=== PATIENT | female | born 1930 | race Caucasian/White ===

== ENCOUNTER → 2016-09-03 | Outpatient (CLI) | payer MEDICARE, OTHER ==
[~2016-09-03] MED LIST: ACHD5005 PO; ASPI-586 PO; ASPI-875 PO; CA C1TAB79 PO; CALC-656 PO; CARI350T27 PO; CEFU500T PO; CEPH500C PO; DNPZ10T PO; EXELON PATCH TD; MECL-124 PO; MEMA10TA2 PO; MULT-974 PO; OMG1KC PO; ONDN4T PO; PANT40TA2 PO; RIVA1PAT9 TD; SCOP1PAT TD; SUCR1TAB36 PO; VIT B COMPLEX PO
--- NOTE | 2016-09-03 12:55 | Diagnostic Imaging Report ---
3 views of the lumbar spine. INDICATION: Back pain. FINDINGS: There is right convexity scoliosis of the lumbar spine. There is a compression deformity involving T12 vertebral body with approximately 20% vertebral body height loss. There is disc height loss of moderate degree at L4/5 level. Multilevel anterior osteophytes noted. No significant posterior osteophytes. There is sclerotic changes in the facet joints particularly on the left side compatible with degenerative changes. Calcifications in the pelvis are likely vascular. Soft tissues also demonstrate aortic calcifications and cardiomegaly. IMPRESSION: 1. Mild right convexity scoliosis and degenerative changes. 2. A 20% compression fracture of indeterminate age at T12 level. If the patient has recent injury or has a matching pain level, then further evaluation with MRI would be helpful. Report was faxed to office of Dr. Pool by john at 12:59 p.m. Dictated by: Dictated on workstation # [id number]
[2016-09-04 11:37] LABS: TULAREMIA ANTIBODY <1:20
[2016-09-04 16:12] LABS: IGG ROCKY MOUNTAIN SPOTTED FEV <1:16 (<1:16); IGM ROCKY MOUNTAIN SPOTTED FEV <1:10 (<1:10)
[2016-09-04 21:05] LABS: LYME AB G M 0.04 Index (0.00-0.89)
[2016-09-05 07:17] LABS: LYME AB INTERP Negative (Negative)
[2016-09-05 14:05] LABS: EHRLICHIA CHAFFEENSIS G ABY 1:32 (<1:16)
== END ==
LOC: RAD 11:55
PROVIDERS: ATTEND Family Medicine
DX: M41.9 Scoliosis, unspecified (principal); M47.816 Spondylosis without myelopathy or radiculopathy, lumbar region; M48.54XA Collapsed vertebra, not elsewhere classified, thoracic region, initial encounter for fracture
CPT/HCPCS: 36415; 72100; 86618; 86666; 86668; 86757

== ENCOUNTER → 2018-01-07 | Outpatient (CLI) | payer OTHER, MEDICARE ==
--- NOTE | 2018-01-07 13:11 | Diagnostic Imaging Report ---
INDICATION: Left wrist pain and swelling. AP, oblique, and lateral views of left wrist are obtained. There is no fracture or acute bony abnormality. There is degenerative change of the radiocarpal joint and first carpal metacarpal joint. There is chondrocalcinosis. IMPRESSION: Chronic findings as described above with no acute appearing abnormality. Dictated by: Dictated on workstation # [id number]
== END ==
LOC: RAD 11:49
PROVIDERS: ATTEND Family Medicine
DX: M19.032 Primary osteoarthritis, left wrist (principal); M11.232 Other chondrocalcinosis, left wrist; W10.2XXS Fall (on)(from) incline, sequela
CPT/HCPCS: 73110

== ENCOUNTER 2018-02-16 16:20 | Emergency (ER) | payer MEDICARE, OTHER ==
[~2018-02-16] VITALS: Ht 162.6 cm; Wt 59.0 kg
--- OUTSIDE RECORDS SUMMARY | 2018-02-16 16:25 | XMS REPORT | Continuity of Care Document ---
Author Author [facility] Organization [facility] Address Unknown Phone Unavailable Allergies Active Description Code Type Severity Reaction Onset Reported/Identified Relationship to Patient Clinical Status Yes CODEINE SULFATE UNKNOWN OTHER Yes belladonna alkaloids [id number] Drug Allergy Mild NAUSEA 02/09/2013 Yes codeine [id number] Drug Allergy Unknown N/A 01/25/2015 Medications Medication Packaging Start Date Stop Date Route Dosage Sig Memantine oral tablet 5mg (NAMENDA) MG 12/24/2017 12/24/2017 ONCE&0800,2000 Rivastigmine TD Patch 24 hour 13.3mg (EXELON) MG 12/24/2017 12/24/2017 ONCE&0900 LORAZEPAM TAB 0.5 MG (ATIVAN) MG 12/31/2017 PRN Q6H ACETAMINOPHEN ORAL TABLET 325mg(Tylenol) MG 12/25/2017 01/24/2018 PRN Q6H POLYETHYLENE GLYCOL POWDER UD PWD (MIRALAX 17GM UNIT DOSE PAKS) gm 12/25/2017 01/24/2018 PRN Q3H ALUM/MAG/SIMETH 30CC LIQ (MYLANTA PLUS) cc 12/25/2017 01/24/2018 PRN Q4H LACTULOSE SYRUP LIQ 20 GM/30CC (CHRONULAC SYRUP) GM 12/25/2017 01/24/2018 PRN BID MILK OF MAGNESIA LIQ ml 12/25/2017 01/24/2018 PRN BID MELATONIN TAB 3 MG (MELATONIN) MG 12/25/2017 01/24/2018 PRN QHS BISACODYL SUPPOS 10 MG (DULCOLAX SUPPOS) MG 12/26/2017 01/25/2018 PRN Daily LORAZEPAM TAB 0.5 MG (ATIVAN) MG 01/24/2018 Daily&1400 HALOPERIDOL TAB 1 MG (HALDOL) MG 01/25/2018 PRN Q6H HALOPERIDOL TAB 1 MG (HALDOL) MG 01/26/2018 PRN Q6H IPRATROPIUM/ALBUTEROL INH SOLN (DUO-NEB INH SOLN) MLS 12/28/2017 12/28/2017 ONCE&0825 LORAZEPAM TAB 1 MG (ATIVAN) MG 05/201701/26/2018 Daily&1400 IPRATROPIUM/ALBUTEROL INH SOLN (DUO-NEB INH SOLN) MLS 12/28/2017 01/27/2018 TID&0600,1400,2200 AMLODIPINE TAB 5 MG (NORVASC) MG 01/27/2018 QAM&0900 HALOPERIDOL TAB 1 MG (HALDOL) MG 01/28/2018 BID&0800,2000 AMLODIPINE TAB 5 MG (NORVASC) MG 01/28/2018 QAM&0900 LORAZEPAM TAB 1 MG (ATIVAN) MG 07/201701/28/2018 Q24H&1200 LORAZEPAM TAB 1 MG (ATIVAN) MG 07/201701/28/2018 QHS&2100 SERTRALINE TAB 25 MG (ZOLOFT) MG 01/29/2018 Daily&0900 Clonazepam Oral Dissolve Tab 0.25mg (Klonopin) MG 12/31/2017 12/31/2017 ONCE&1017 Clonazepam Oral Dissolve Tab 0.25mg (Klonopin) MG 12/31/2017 01/30/2018 BID&0800,2000 CLONAZEPAM TAB 0.5 MG (KLONOPIN) MG 01/01/2018 01/01/2018 ONCE&1600 LORAZEPAM TAB 0.5 MG (ATIVAN) MG 01/31/2018 PRN Q6H CLONAZEPAM TAB 0.5 MG (KLONOPIN) MG 01/01/2018 01/31/2018 TID&0600,1400,2200 HALOPERIDOL TAB 1 MG (HALDOL) MG 02/01/2018 TID&0800,1400,2000 SERTRALINE TAB 50 MG (ZOLOFT) MG 02/01/2018 Daily&0900 Problems Date Dx Coded Attending Type Code Diagnosis Diagnosed By 11/08/2010 Ot 780.4 DIZZINESS AND GIDDINESS 11/08/2010 Ot V58.69 OTH MED,LT, CURRENT USE 12/12/2010 Ot 401.9 HYPERTENSION NOS 12/12/2010 Ot 723.1 CERVICALGIA 01/26/2012 Ot 916.0 ABRASION HIP LEG 01/26/2012 Ot E000.8 OTHER EXTERNAL CAUSE STATUS 01/26/2012 Ot E849.0 ACCIDENT IN HOME 01/26/2012 Ot E917.4 STAT OB W/O SUB FALL NEC 01/26/2012 Ot V06.1 DIPHTHERIA- TETANUS-PERTUSSIS, COMBINED [ 04/21/2012 Ot 786.52 PAINFUL RESPIRATION 04/21/2012 Ot 922.2 CONTUSION ABDOMINAL WALL 04/21/2012 Ot E000.8 OTHER EXTERNAL CAUSE STATUS 04/21/2012 Ot E849.0 ACCIDENT IN HOME 04/21/2012 Ot E888.1 FALL STRIKING OBJECT NEC 02/08/2013 DARRELL BURGESS, MELISSA R Ot 787.01 NAUSEA WITH VOMITING 02/09/2013 MARY NAZARIO DO Ot 787.99 OTHER GI SYSTEM SYMPTOMS 05/23/2014 RACQUEL BURGESS, JAMES Lee Ot 599.0 URIN TRACT INFECTION NOS 05/23/2014 RACQUEL BURGESS, JAMES Lee Ot 787.01 NAUSEA WITH VOMITING 08/17/2014 DARRELL BURGESS, MELISSA R Ot 618.1 08/17/2014 MARY NAZARIO DO Ot V72.84 08/17/2014 Ot 787.01 08/17/2014 DARRELL BURGESS, MELISSA R Ot 496 08/17/2014 DARRELL BURGESS, MELISSA R Ot 737.30 08/17/2014 DARRELL BURGESS, MELISSA R Ot 294.20 08/18/2014 DARRELL BURGESS, MELISSA R Ot 414.01 08/18/2014 DARRELL BURGESS, MELISSA R Ot 492.8 08/18/2014 DARRELL BURGESS, MELISSA R Ot 783.21 08/18/2014 DARRELL BURGESS, MELISSA R Ot 787.01 08/18/2014 DARRELL BURGESS, MELISSA R Ot 414.01 08/18/2014 DARRELL BURGESS, MELISSA R Ot 492.8 08/18/2014 DARRELL BURGESS, MELISSA R Ot 783.21 08/18/2014 DARRELL BURGESS, MELISSA R Ot 787.01 09/24/2014 DARRELL BURGESS, MELISSA R Ot 414.01 09/24/2014 DARRELL BURGESS, MELISSA R Ot 492.8 09/24/2014 DARRELL BURGESS, MELISSA R Ot 783.21 09/24/2014 DARRELL BURGESS, MELISSA R Ot 787.01 10/10/2014 DARRELL BURGESS, MELISSA R Ot 414.01 10/10/2014 DARRELL BURGESS, MELISSA R Ot 492.8 10/10/2014 DARRELL BURGESS, MELISSA R Ot 783.21 10/10/2014 DARRELL BURGESS, MELISSA R Ot 787.01 01/25/2015 Ot 787.01 01/25/2015 KENNETH BURGESS, ISAIAH Ot 331.0 ALZHEIMER'S DISEASE 01/25/2015 KENNETH BURGESS, ISAIAH Ot 530.11 REFLUX ESOPHAGITIS 01/25/2015 KENNETH BURGESS, ISAIAH Ot 531.90 STOMACH ULCER NOS 01/25/2015 KENNETH BURGESS, ISAIAH Ot 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/O ME 01/25/2015 KENNETH BURGESS, ISAIAH Ot 553.3 DIAPHRAGMATIC HERNIA 01/25/2015 KENNETH BURGESS, ISAIAH Ot V58.69 OTH MED,LT,CURRENT USE 02/06/2016 Ot 816.01 FX MID/PRX PHAL, HAND-CL 02/06/2016 Ot E000.8 OTHER EXTERNAL CAUSE STATUS 02/06/2016 Ot E888.9 FALL NOS 02/06/2016 Ot 433.10 CAROTID ARTERY OCCLUSION W O CEREBRAL IN 02/06/2016 DARRELL BURGESS, MELISSA R Ot 787.01 NAUSEA WITH VOMITING 02/06/2016 DARRELL BURGESS, MELISSA R Ot 618.1 UTERINE PROLAPSE 02/06/2016 MARY NAZARIO DO Ot V72.84 EXAM PRE-OPERATIVE NOS 02/06/2016 Ot 787.01 NAUSEA WITH VOMITING 02/06/2016 DARRELL BURGESS, MELISSA R Ot 496 CHR AIRWAY OBSTRUCT NEC 02/06/2016 DARRELL BURGESS, MELISSA R Ot 737.30 IDIOPATHIC SCOLIOSIS 02/06/2016 DARRELL BURGESS, MELISSA R Ot 294.20 DEMENTIA, UNSPECIFIED, WITHOUT BEHAVIORA 02/06/2016 MELISSA RAMÍREZ MD Ot 414.01 CORONARY ATHEROSCLEROSIS OF [place] CORON 02/06/2016 MELISSA RAMÍREZ MD Ot 492.8 EMPHYSEMA NEC 02/06/2016 MELISSA RAMÍREZ MD Ot 783.21 LOSS OF WEIGHT 02/06/2016 MELISSA RAMÍREZ MD Ot 787.01 NAUSEA WITH VOMITING 02/06/2016 XI NORIEGA APRN Ot N39.0 URINARY TRACT INFECTION, SITE NOT SPECIF 02/06/2016 XI NORIEGA STEWARD/STEWARDESS TOURIST CLASS Ot R11.0 NAUSEA 02/06/2016 XI NORIEGA STEWARD/STEWARDESS TOURIST CLASS Ot R50.9 FEVER, UNSPECIFIED 02/06/2016 XI NORIEGA STEWARD/STEWARDESS TOURIST CLASS Ot Z79.82 ASSISTED (CURRENT) USE OF ASPIRIN 02/06/2016 XI NORIEGA STEWARD/STEWARDESS TOURIST CLASS Ot Z79.899 OTHER TELEGRAPH AND TELETYPE OPERATOR (CURRENT) DRUG THERAPY 02/07/2016 XI NORIEGA STEWARD/STEWARDESS TOURIST CLASS Ot N39.0 URINARY TRACT INFECTION, SITE NOT SPECIF 02/07/2016 XI NORIEGA STEWARD/STEWARDESS TOURIST CLASS Ot R11.0 NAUSEA 02/07/2016 XI NORIEGA APRN Ot R50.9 FEVER, UNSPECIFIED 02/07/2016 XI NORIEGA STEWARD/STEWARDESS TOURIST CLASS Ot Z79.82 TELEGRAPH AND TELETYPE OPERATOR (CURRENT) USE OF ASPIRIN 02/07/2016 XI NORIEGA STEWARD/STEWARDESS TOURIST CLASS Ot Z79.899 OTHER TELEGRAPH AND TELETYPE OPERATOR (CURRENT) DRUG THERAPY 02/13/2016 Ot 816.01 FX MID/PRX PHAL, HAND-CL 02/13/2016 Ot E000.8 OTHER EXTERNAL CAUSE STATUS 02/13/2016 Ot E888.9 FALL NOS 02/13/2016 Ot 433.10 CAROTID ARTERY OCCLUSION W O CEREBRAL IN 02/13/2016 MELISSA RAMÍREZ MD R Ot 787.01 NAUSEA WITH VOMITING 02/13/2016 MELISSA RAMÍREZ MD Ot 618.1 UTERINE PROLAPSE 02/13/2016 MARY NAZARIO DO Ot V72.84 EXAM PRE-OPERATIVE NOS 02/13/2016 Ot 787.01 NAUSEA WITH VOMITING 02/13/2016 MELISSA RAMÍREZ MD Ot 496 CHR AIRWAY OBSTRUCT NEC 02/13/2016 MELISSA RAMÍREZ MD R Ot 737.30 IDIOPATHIC SCOLIOSIS 02/13/2016 SEGLIE MD, MELISSA R Ot 294.20 DEMENTIA, UNSPECIFIED, WITHOUT BEHAVIORA 02/13/2016 MELISSA RAMÍREZ MD R Ot 414.01 CORONARY ATHEROSCLEROSIS OF [place] CORON 02/13/2016 KANE RAMÍREZ MDYD R Ot 492.8 EMPHYSEMA NEC 02/13/2016 MELISSA RAMÍREZ MD R Ot 783.21 LOSS OF WEIGHT 02/13/2016 MELISSA RAMÍREZ MD R Ot 787.01 NAUSEA WITH VOMITING 09/04/2016 DARRELL BURGESS MELISSA R Ot M41.9 SCOLIOSIS, UNSPECIFIED 09/04/2016 KANE RAMÍREZ MDYD R Ot M47.816 SPONDYLOSIS W/O MYELOPATHY OR RADICULOPA 09/04/2016 KANE RAMÍREZ MDYD R Ot M48.54XA COLLAPSED VERTEBRA, NEC, THORACIC REGION 09/26/2016 KANE RAMÍREZ MDYD R Ot M41.9 SCOLIOSIS, UNSPECIFIED 09/26/2016 DARRELL BURGESS MELISSA R Ot M47.816 SPONDYLOSIS W/O MYELOPATHY OR RADICULOPA 09/26/2016 DARRELL BURGESS MELISSA R Ot M48.54XA COLLAPSED VER[place]BRA, NEC, THORACIC REGION 10/01/2016 MELISSA RAMÍREZ MD R Ot M41.9 SCOLIOSIS, UNSPECIFIED 10/01/2016 DARRELL BURGESS MELISSA R Ot M47.816 SPONDYLOSIS W/O MYELOPATHY OR RADICULOPA 10/01/2016 KANE RAMÍREZ MDYD R Ot M48.54XA COLLAPSED VERTEBRA, NEC, THORACIC REGION 01/07/2018 MELISSA RAMÍREZ MD R Ot 787.01 NAUSEA WITH VOMITING 01/07/2018 DARRELL BURGESS MELISSA R Ot 618.1 UTERINE PROLAPSE 01/07/2018 MARY NAZARIO DO Ot V72.84 EXAM PRE-OPERATIVE NOS 01/07/2018 Ot 787.01 NAUSEA WITH VOMITING 01/07/2018 MELISSA RAMÍREZ MD R Ot 496 CHR AIRWAY OBSTRUCT NEC 01/07/2018 DRARELL BURGESS MELISSA R Ot 737.30 IDIOPATHIC SCOLIOSIS 01/07/2018 DARRELL BURGESS MELISSA R Ot 294.20 DEMENTIA, UNSPECIFIED, WITHOUT BEHAVIORA 01/07/2018 DARRELL BURGESS MELISSA R Ot 414.01 CORONARY ATHEROSCLEROSIS OF [place] CORON 01/07/2018 MELISSA RAMÍREZ MD R Ot 492.8 EMPHYSEMA NEC 01/07/2018 MELISSA RAMÍREZ MD R Ot 783.21 LOSS OF WEIGHT 01/07/2018 MELISSA RAMÍREZ MD R Ot 787.01 NAUSEA WITH VOMITING 01/07/2018 MELISSA RAMÍREZ MD R Ot M41.9 SCOLIOSIS, UNSPECIFIED 01/07/2018 MELISSA RAMÍREZ MD Ot M47.816 SPONDYLOSIS W/O MYELOPATHY OR RADICULOPA 01/07/2018 MELISSA RAMÍREZ MD R Ot M48.54XA COLLAPSED [place]BRA, NEC, THORACIC REGION 01/07/2018 MELISSA RAMÍREZ MD R Ot 618.1 UTERINE PROLAPSE 01/07/2018 MARY NAZARIO DO Ot V72.84 EXAM PRE-OPERATIVE NOS 01/07/2018 Ot 787.01 NAUSEA WITH VOMITING 01/07/2018 MELISSA RAMÍREZ MD Ot 496 CHR AIRWAY OBSTRUCT NEC 01/07/2018 MELISSA RAMÍREZ MD R Ot 737.30 IDIOPATHIC SCOLIOSIS 01/07/2018 MELISSA RAMÍREZ MD R Ot 294.20 DEMENTIA, UNSPECIFIED, WITHOUT BEHAVIORA 01/08/2018 MELISSA RAMÍREZ MD R Ot 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 Results Test Result Range Complete blood count (CBC) with automated white blood cell (WBC) differential - 02/06/16 15:06 Blood leukocytes automated count (number/volume) 7.1 10*3/uL 4.3-11.0 Blood erythrocytes automated count (number/volume) 4.39 10*6/uL 4.35-5.85 Venous blood hemoglobin measurement (mass/volume) 13.6 g/dL 11.5-16.0 Blood hematocrit (volume fraction) 41 % 35-52 Automated erythrocyte mean corpuscular volume 93 [foz_us] 80-99 Automated erythrocyte mean corpuscular hemoglobin (mass per erythrocyte) 31 pg 25-34 Automated erythrocyte mean corpuscular hemoglobin concentration measurement ( mass/volume) 33 g/dL 32-36 Automated erythrocyte distribution width ratio 13.5 % 10.0-14.5 Automated blood platelet count (count/volume) 259 10*3/uL 130-400 Automated blood platelet mean volume measurement 9.8 [foz_us] 7.4-10.4 Automated blood neutrophils/100 leukocytes 71 % 42-75 Automated blood lymphocytes/100 leukocytes 18 % 12-44 Blood monocytes/100 leukocytes 10 % 0-12 Automated blood eosinophils/100 leukocytes 1 % 0-10 Automated blood basophils/100 leukocytes 1 % 0-10 Blood neutrophils automated count (number/volume) 5.0 10*3 1.8-7.8 Blood lymphocytes automated count (number/volume) 1.3 10*3 1.0-4.0 Blood monocytes automated count (number/volume) 0.7 10*3 0.0-1.0 Automated eosinophil count 0.1 10*3/uL 0.0-0.3 Automated blood basophil count (count/volume) 0.1 10*3/uL 0.0-0.1 Comprehensive metabolic panel - 02/06/16 15:06 Serum or plasma sodium measurement (moles/volume) 141 mmol/L 135-145 Serum or plasma potassium measurement (moles/volume) 3.9 mmol/L 3.6-5.0 Serum or plasma chloride measurement (moles/volume) 107 mmol/L 98-107 Carbon dioxide 20 mmol/L 21-32 Serum or plasma anion gap determination (moles/volume) 14 mmol/L 5-14 Serum or plasma urea nitrogen measurement (mass/volume) 10 mg/dL 7-18 Serum or plasma creatinine measurement (mass/volume) 0.81 mg/dL 0.60-1.30 Serum or plasma urea nitrogen/creatinine mass ratio 12 NRG Serum or plasma creatinine measurement with calculation of estimated glomerular filtration rate > NRG Serum or plasma glucose measurement (mass/volume) 99 mg/dL 70-105 Serum or plasma calcium measurement (mass/volume) 9.4 mg/dL 8.5-10.1 Serum or plasma total bilirubin measurement (mass/volume) 0.6 mg/dL 0.1-1.0 Serum or plasma alkaline phosphatase measurement (enzymatic activity/volume) 71 U/L 40-136 Serum or plasma aspartate aminotransferase measurement (enzymatic activity/ volume) 20 U/L 5-34 Serum or plasma alanine aminotransferase measurement (enzymatic activity/volume ) 12 U/L 0-55 Serum or plasma protein measurement (mass/volume) 6.8 g/dL 6.4-8.2 Serum or plasma albumin measurement (mass/volume) 4.0 g/dL 3.2-4.5 Lipase - 02/06/16 15:06 Lipase 63 U/L 8-78 Tick identification panel - 02/06/16 15:06 Serum Ehrlichia chaffeensis IgG antibody detection <1:16 <1:16 Serum Ehrlichia chaffeensis IgM antibody detection <1:10 <1:10 Serum Rickettsia rickettsii IgG antibody assay (units/volume) <1:16 <1:16 [place] spotted fever panel <1:10 <1:10 Francisella tularensis antibody assay <1:20 NRG Borrelia burgdorferi (Lyme disease) antibody 0.11 0.00- 0.90 Complete urinalysis with reflex to culture - 02/06/16 15:50 Urine color determination YELLOW NRG Urine clarity determination CLEAR NRG Urine pH measurement by test strip 7 5-9 Specific gravity of urine by test strip 1.015 1.016- 1.022 Urine protein assay by test strip, semi-quantitative 1+ NEGATIVE Urine glucose detection by automated test strip NEGATIVE NEGATIVE Erythrocytes detection in urine sediment by light microscopy 2+ NEGATIVE Urine ketones detection by automated test strip 4+ NEGATIVE Urine nitrite detection by test strip NEGATIVE NEGATIVE Urine total bilirubin detection by test strip NEGATIVE NEGATIVE Urine urobilinogen measurement by automated test strip (mass/volume) NORMAL NORMAL Urine leukocyte esterase detection by dipstick 2+ NEGATIVE Automated urine sediment erythrocyte count by microscopy (number/high power field) [HPF] NRG Automated urine sediment leukocyte count by microscopy (number/high power field ) [HPF] NRG Bacteria detection in urine sediment by light microscopy FEW NRG Squamous epithelial cells detection in urine sediment by light microscopy 5-10 NRG Crystals detection in urine sediment by light microscopy NONE NRG Casts detection in urine sediment by light microscopy NONE NRG Mucus detection in urine sediment by light microscopy MODERATE NRG Complete urinalysis with reflex to culture YES NRG Bacterial urine culture - 02/06/16 15:50 URINE CULTURE RESULTS <10,000/ML NRG Tick identification panel - 09/03/16 12:32 Serum Ehrlichia chaffeensis IgG antibody detection 1:32 <1:16 Serum Ehrlichia chaffeensis IgM antibody detection 1:10 <1:10 Serum Rickettsia rickettsii IgG antibody assay (units/volume) < <1:16 [place] spotted fever panel < <1:10 Francisella tularensis antibody assay <1:20 NRG LYME AB G M 0.04 % 0.00-0.89 Interpretation of Lyme disease antibody assay Negative Negative Rapid Drug Screen + ETOH,Medical - 12/24/17 13:18 Amphetamine NEGATIVE NEGATIVE Barbiturates NEGATIVE NEGATIVE Benzodiazepines POSITIVE NEGATIVE Cocaine NEGATIVE NEGATIVE Ethanol, Urine <10.00 mg/dL 20.00-80.00 Marijuana NEGATIVE NEGATIVE Methylenedioxymethamphetamine NEGATIVE NEGATIVE Opiates NEGATIVE NEGATIVE Oxycodone NEGATIVE NEGATIVE Phencyclidine NEGATIVE NEGATIVE Propoxyphene NEGATIVE NEGATIVE Tricyclic Antidepressant NEGATIVE NEGATIVE Encounters ACCT No. Visit Date/Time Discharge Status Pt. Type Provider Facility Loc./Unit Complaint [id number] 01/07/2018 11:49:00 01/07/2018 23:59:59 CLS Outpatient MELISSA RAMÍREZ MD [facility] RAD W10.2XXS [id number] 09/03/2016 11:55:00 09/03/2016 23:59:59 CLS Outpatient MELISSA RAMÍREZ MD [facility] RAD M54.40 [id number] 02/06/2016 14:26:00 02/06/2016 16:37:00 DIS Emergency XI NORIEGA APRN [facility] ER FEVER NAUSEA [id number] 01/25/2015 09:40:00 01/25/2015 11:35:00 DIS Outpatient ISAIAH COOPER MD [facility] SDC ABDOMINAL PAIN/NV [id number] 08/16/2014 13:09:00 08/16/2014 23:59:59 CLS Outpatient MELISSA RAMÍREZ MD [facility] RAD WT LOSS,VOMITTING,NAUSEA [id number] 08/15/2014 17:08:00 08/15/2014 17:08:00 CAN Preadmit MELISSA RAMÍREZ MD [facility] LAB WT LOSS, N/V/D [id number] 05/23/2014 13:59:00 05/23/2014 17:40:00 DIS Emergency RACQUEL BURGESS, JAMES Lee [facility] ER NAUSEATED/VOMITING [id number] 01/28/2014 15:20:00 01/28/2014 23:59:59 CLS Outpatient [id number] 12/30/2013 14:51:00 12/30/2013 23:59:59 CLS Outpatient MELISSA RAMÍREZ MD [facility] RAD MEMORY LOSS [id number] 08/16/2013 15:05:00 08/16/2013 23:59:59 CLS Outpatient MELISSA RAMÍREZ MD [facility] RAD COUGH, [id number] 02/09/2013 10:03:00 02/09/2013 16:00:00 DIS Outpatient MARY NAZARIO DO [facility] SDC IRREGULAR BOWEL MOVEMENTS [id number] 11/12/2012 10:53:00 02/08/2013 00:01:00 DIS Outpatient MELISSA RAMÍREZ MD [facility] LAB NAUSEA,VOMITING [id number] 02/04/2013 07:14:00 02/04/2013 23:59:59 CLS Outpatient MARY NAZARIO DO [facility] PREOP IRREGULAR BOWEL MOVEMENTS [id number] 12/30/2012 16:00:00 12/30/2012 23:59:59 CLS Outpatient MELISSA RAMÍREZ MD [facility] RAD FEELING OF DROPPING [id number] 11/10/2012 11:53:00 11/10/2012 23:59:59 CLS Outpatient MELISSA RAMÍREZ MD [facility] RAD VOMITING,NAUSEA [id number] 02/09/2013 00:00:00 Document Registration [id number] 04/21/2012 02:15:00 Document Registration [id number] 01/26/2012 18:40:00 Document Registration [id number] 12/31/2011 13:17:00 Document Registration [id number] 12/12/2010 18:28:00 Document Registration [id number] 11/08/2010 14:44:00 Document Registration [id number] 11/08/2010 09:46:00 Document Registration [id number] 12/24/2017 13:17:00 01/05/2018 13:24:00 DIS Inpatient JOHN FRAIRE [facility] [id number] 12/24/2017 15:28:14 Document Registration
[2018-02-16] MEDS ORDERED: NS IV 500 ML 500 ML IV ONE ×2 (16:37→17:44)
--- NOTE | 2018-02-16 16:46 | ED General ---
General Stated Complaint: POSS DEHYDRATED/WEAKNESS Source of Information: Patient Exam Limitations: No Limitations (NASEEM KYLE MD) History of Present Illness Date Seen by Provider: Feb 16, 2018 Time Seen by Provider: 16:27 Initial Comments Here with report of increasing confusion since this morning. Not eating or drinking well today. Having some difficulty with swallowing. Does have advanced dementia. No recent trauma. Does have a strong odor of urine and family reports that she has had urinary tract infections in the past causing similar problems. They're concerned about dehydration because she is not eating or drinking well today. No reported diarrhea or other problems. Patient denies complaint but did tell family that her ears were ringing. Timing/Duration: 1-2 Days Severity: Moderate Associated Systoms: No Fever/Chills, No Nausea/Vomiting, No Shortness of Air ( NASEEM KYLE MD) Allergies and Home Medications Allergies Coded Allergies: codeine (Unverified Allergy, Unknown, 01/25/15) belladonna alkaloids (Unverified Adverse Reaction, Mild, NAUSEA, 02/09/13) Home Medications Aspirin 81 Mg Tablet.dr, 81 MG PO DAILY, (Reported) Ca Carbonate/Vitamin D3/Vit K 1 Each Tab.chew, 1 EACH PO DAILY, (Reported) Cefuroxime Axetil 500 Mg Tablet, 500 MG PO BID Prescribed by: XI NORIEGA on 02/06/16 1617 Donepezil Hcl 10 Mg Tablet, 10 MG PO DAILY, (Reported) Ondansetron HCl 4 Mg Tab, 4 MG PO Q4H Prescribed by: ISAIAH COOPER on 01/25/15 1101 Pantoprazole Sodium 40 Mg Tablet.dr, 40 MG PO DAILY Prescribed by: ISAIAH COOPER on 01/25/15 1101 Sucralfate 1 Gm Tablet, 1 GM PO QID Prescribed by: ISAIAH COOPER on 01/25/15 1101 [Exelon Patch] , TD DAILY Prescribed by: ROQUE OHARA on 01/25/15 1036 Patient Home Medication List Home Medication List Reviewed: Yes (NASEEM KYLE MD) Review of Systems Review of Systems Constitutional: see HPI; No chills, No fever EENTM: see HPI, mouth pain (sores from dentures) Respiratory: No cough; short of breath Cardiovascular: No chest pain, No edema Gastrointestinal: No abdominal pain, No nausea, No vomiting Genitourinary: decreased output; No dysuria Musculoskeletal: No muscle pain; muscle weakness Skin: no symptoms reported (NASEEM KYLE MD) All Other Systems Reviewed Negative Unless Noted: Yes (NASEEM KYLE MD) Past Diitjqv-Ejgmup-Ksxxuf Hx Past Med/Social Hx: Reviewed Nursing Past Med/Soc Hx (NASEEM KYLE MD) Patient Social History Alcohol Use: Denies Use Recreational Drug Use: No Smoking Status: Former Smoker Former Smoker, Quit: Feb 05, 2000 Recent Foreign Travel: No Contact w/Someone Who Travel: No Recent Hopitalizations: No (NASEEM KYLE MD) Immunizations Up To Date Date of Influenza Vaccine: Jan 26, 2014 (NASEEM KYLE MD) Past Medical History Surgeries: Yes Abdominal, Orthopedic Respiratory: No Cardiac: Yes Hypertension Neurological: Yes Dementia Genitourinary: Yes Bladder Infection Gastrointestinal: No Musculoskeletal: Yes Fractures Endocrine: No HEENT: No Cancer: No (NASEEM KYLE MD) Family Medical History Reviewed Nursing Family Hx (NASEEM KYLE MD) Physical Exam Vital Signs Vital Signs - First Documented 02/16/18 16:24 Temp 100.4 Pulse 81 Resp 18 B/P (MAP) 182/92 (122) Pulse Ox 94 O2 Delivery Room Air (JAMES CLEMENT MD) Vital Signs Capillary Refill : (NASEEM KYLE MD) Height, Weight, BMI Height: 5'1.00" Weight: 110lbs. oz. 49.464207sa; BMI Method:Stated General Appearance: No Apparent Distress, Thin HEENT: PERRL/EOMI, Pharynx Normal Neck: Non Tender, Supple Respiratory: Lungs Clear, Normal Breath Sounds Cardiovascular: Regular Rate, Rhythm, No Murmur Gastrointestinal: Non Tender, Soft Back: Normal Inspection, No CVA Tenderness, No Vertebral Tenderness Extremity: Normal Inspection, Normal Range of Motion Neurologic/Psychiatric: Alert, Motor Weakness (globally), Other (underlying dementia) Skin: Normal Color, Warm/Dry (NASEEM KYLE MD) Focused Exam Lactate Level 02/16/18 16:40: Lactic Acid Level 1.10 (JAMES CLEMENT MD) Lactic Acid Level (JAMES CLEMENT MD) Progress/Results/Core Measures Suspected Sepsis SIRS Temperature: Pulse: Respiratory Rate: Laboratory Tests 02/16/18 16:40: White Blood Count 10.7 Blood Pressure / Mean: 02/16/18 16:40: Lactic Acid Level 1.10 Laboratory Tests 02/16/18 16:40: Creatinine 0.79, INR Comment 1.0, Platelet Count 264, Total Bilirubin 0.5 (NASEEM KYLE MD) Results/Orders Lab Results Laboratory Tests Test 02/16/18 16:40 02/16/18 17:41 Range/Units White Blood Count 10.7 4.3-11.0 10^3/uL Red Blood Count 4.40 4.35-5.85 10^6/uL Hemoglobin 13.4 11.5-16.0 G/DL Hematocrit 41 35-52 % Mean Corpuscular Volume 93 80-99 FL Mean Corpuscular Hemoglobin 31 25-34 PG Mean Corpuscular Hemoglobin Concent 33 32-36 G/DL Red Cell Distribution Width 13.2 10.0-14.5 % Platelet Count 264 130-400 10^3/uL Mean Platelet Volume 10.4 7.4-10.4 FL Neutrophils (%) (Auto) 62 42-75 % Lymphocytes (%) (Auto) 22 12-44 % Monocytes (%) (Auto) 14 H 0-12 % Eosinophils (%) (Auto) 2 0-10 % Basophils (%) (Auto) 0 0-10 % Neutrophils # (Auto) 6.6 1.8-7.8 X 10^3 Lymphocytes # (Auto) 2.4 1.0-4.0 X 10^3 Monocytes # (Auto) 1.5 H 0.0-1.0 X 10^3 Eosinophils # (Auto) 0.2 0.0-0.3 10^3/uL Basophils # (Auto) 0.0 0.0-0.1 10^3/uL Prothrombin Time 13.3 12.2-14.7 SEC INR Comment 1.0 0.8-1.4 Activated Partial Thromboplast Time 29 24-35 SEC Sodium Level 138 135-145 MMOL/L Potassium Level 3.6 3.6-5.0 MMOL/L Chloride Level 103 98-107 MMOL/L Carbon Dioxide Level 21 21-32 MMOL/L Anion Gap 14 5-14 MMOL/L Blood Urea Nitrogen 10 7-18 MG/DL Creatinine 0.79 0.60-1.30 MG/DL Estimat Glomerular Filtration Rate > 60 BUN/Creatinine Ratio 13 Glucose Level 127 H 70-105 MG/DL Lactic Acid Level 1.10 0.50-2.00 MMOL/L Calcium Level 9.3 8.5-10.1 MG/DL Corrected Calcium 9.4 8.5-10.1 MG/DL Total Bilirubin 0.5 0.1-1.0 MG/DL Aspartate Amino Transf (AST/SGOT) 15 5-34 U/L Alanine Aminotransferase (ALT/SGPT) 9 0-55 U/L Alkaline Phosphatase 84 40-136 U/L Troponin I < 0.30 <0.30 NG/ML Total Protein 7.3 6.4-8.2 GM/DL Albumin 3.9 3.2-4.5 GM/DL Urine Color YELLOW Urine Clarity CLEAR Urine pH 6 5-9 Urine Specific [place] 1.015 L 1.016-1.022 Urine Protein 1+ H NEGATIVE Urine Glucose (UA) NEGATIVE NEGATIVE Urine Ketones NEGATIVE NEGATIVE Urine Nitrite NEGATIVE NEGATIVE Urine Bilirubin NEGATIVE NEGATIVE Urine Urobilinogen 1 NORMAL MG/DL Urine Leukocyte Esterase NEGATIVE NEGATIVE Urine RBC (Auto) 4+ H NEGATIVE Urine RBC 10-25 H /HPF Urine WBC RARE /HPF Urine Squamous Epithelial Cells 0-2 /HPF Urine Crystals NONE /LPF Urine Bacteria FEW H /HPF Urine Casts NONE /LPF Urine Mucus LARGE H /LPF Urine Culture Indicated NO (JAMES CLEMENT MD) Medications Given in ED Current Medications Medications Dose Ordered Sig/Elina Route Start Time Stop Time Status Last Admin Dose Admin Enalapril Maleate 5 mg ONCE ONCE PO 02/16/18 18:00 02/16/18 18:01 DC 02/16/18 18:21 5 MG Sodium Chloride 500 ml @ 0 mls/hr Q0M ONCE IV 02/16/18 17:44 02/16/18 17:45 DC 02/16/18 17:50 500 MLS/HR (JAMES CLEMENT MD) Vital Signs/I&O 02/16/18 19:15 Temp 98.5 Pulse 87 Resp 16 B/P (MAP) 184/83 (116) Pulse Ox 95 O2 Delivery Room Air 02/17/18 00:00 Intake Total 1000 ml Balance 1000 ml (JAMES CLEMENT MD) Vital Signs/I&O Capillary Refill : (NASEEM KYLE MD) Progress Note : Progress Note Seen and evaluated. IV, labs, EKG and chest x-ray ordered. UA ordered. We will do a Hart catheter due to her significant weakness. Blood cultures and lactic acid ordered. Monitor patient. 1740: Hart catheter very difficult placement. We were able to finally place 14 [place] Hart catheter with knees flexed back to allow visualization of urethra. UA sent. Stroke scale is 0. We will get dysphagia screen and CT of the head due to they reported difficulty of swallowing. Repeat normal saline 500 mL bolus as her urine appears to be quite concentrated. (NASEEM KYLE MD) Progress Note #1: Time: 18:05 Progress Note Care of this patient was assumed from Dr. Kyle. Bedside report was given. CT scan was pending at the time of transfer of care. Progress Note #2: Progress Note CT scan and lab reports were reviewed with patient and family. Options were discussed. Patient and family elected to return home and follow up with Dr. Pool in the morning. We discussed the potential for rehabilitation and/or some type of home health assistance. Patient did seem to become more alert and energetic after receiving IV fluids. (JAMES CLEMENT MD) ECG Initial ECG Impression Date: Feb 16, 2018 Initial ECG Impression Time: 16:31 Initial ECG Rate: 94 Initial ECG Rhythm: Normal Sinus Comment Sinus rhythm with left bundle branch block. Left axis deviation. Similar to previous of 22 May 2014 with progression of left bundle branch block. Interpreted by me. (NASEEM KYLE MD) Diagnostic Imaging Diagonstic Imaging: Xray Plain Films/CT/US/NM/MRI: chest Comments VIA [place], [place] NAME: PATRICK VERA [facility] REC#: [id number] PT STATUS: REG ER : 1930 PHYSICIAN: NASEEM KYLE MD ADMIT DATE: 02/16/18/ER Draft Date of Exam:02/16/18 CHEST 1 VIEW, AP/PA ONLY INDICATION: Dehydration. Portable chest at 05:21 p.m. FINDINGS: Heart size and pulmonary vascularity are normal. Lungs are clear. There are no effusions or pneumothoraces. IMPRESSION: Negative chest. Dictated on workstation # [id number] Dict: 02/16/18 1727 Trans: 02/16/18 1729 [id number] Interpreted by: NASEEM AVELAR MD Electronically signed by: (NASEEM KYLE MD) Diagonstic Imaging: CT Plain Films/CT/US/NM/MRI: head Comments CT head viewed by me and report reviewed. See report below: NAME: PATRICK VERA [facility] REC#: [id number] PT STATUS: REG ER : 1930 PHYSICIAN: NASEEM KYLE MD ADMIT DATE: 02/16/18/ER Draft Date of Exam:02/16/18 CT HEAD WO-R/O STROKE INDICATION: Weakness/dehydration EXAM: CT head without contrast. FINDINGS: There is generalized atrophy. There are no masses or hemorrhages. There are no extra-axial fluid collections. IMPRESSION: Diffuse cerebral degeneration. No acute abnormality is seen. Dictated on workstation # [id number] Dict: 02/16/18 1816 Trans: 02/16/18 1834 [facility] [id number] Interpreted by: NASEEM AVELAR MD (JAMES CLEMENT MD) Departure Impression Primary Impression: Generalized weakness Additional Impressions: Confusion Decreased oral intake Hypovolemia Hypertension Qualified Codes: I10 - Essential (primary) hypertension Disposition: 01 HOME, SELF-CARE Condition: Improved Departure-Patient Inst. Decision time for Depature: 19:00 (JAMES CLEMENT MD) Referrals: MELISSA POOL MD (PCP/Family) Primary Care Physician Patient Instructions: Dehydration Add. Discharge Instructions: Keep your appointment with Dr. Pool tomorrow. Please walk carefully and use assistance from a family member or a walker to prevent falls. Drink plenty of clear liquids and avoid excessive caffeinated beverages. Return to care if symptoms are worsening. Discuss options for physical therapy or physical rehabilitation with Dr. Pool. Copy Copies To 1: MELISSA POOL MD, TIMOTHY D MD Feb 16, 2018 16:46 JAMES CLEMENT MD Feb 16, 2018 18:45
[2018-02-16 17:05] LABS: BASOPHILS % (AUTO) 0 % (0-10); EOSINOPHILS # (AUTO) 0.2 10^3/uL (0.0-0.3); EOSINOPHILS % (AUTO) 2 % (0-10); HEMATOCRIT 41 % (35-52); HEMOGLOBIN 13.4 G/DL (11.5-16.0); LYMPHOCYTES # (AUTO) 2.4 X 10^3 (1.0-4.0); LYMPHOCYTES % (AUTO) 22 % (12-44); MEAN CORPUSCULAR HEMOGLOBIN 31 PG (25-34); MEAN CORPUSCULAR HGB CONC 33 G/DL (32-36); MEAN CORPUSCULAR VOLUME 93 FL (80-99); MEAN PLATELET VOLUME 10.4 FL (7.4-10.4); MONOCYTES # (AUTO) 1.5 X 10^3 (0.0-1.0); MONOCYTES % (AUTO) 14 % (0-12); NEUTROPHILS # (AUTO) 6.6 X 10^3 (1.8-7.8); NEUTROPHILS % (AUTO) 62 % (42-75); PLATELET COUNT 264 10^3/uL (130-400); RED CELL DISTRIBUTION WIDTH 13.2 % (10.0-14.5); WHITE BLOOD COUNT 10.7 10^3/uL (4.3-11.0)
[2018-02-16 17:16] LABS: PROTHROMBIN TIME PATIENT 13.3 SEC (12.2-14.7)
[2018-02-16 17:25] LABS: ALANINE AMINOTRANSFERASE 9 U/L (0-55); ALBUMIN 3.9 GM/DL (3.2-4.5); ALKALINE PHOSPHATASE 84 U/L (40-136); BILIRUBIN,TOTAL 0.5 MG/DL (0.1-1.0); BUN/CREATININE RATIO 13; CALCIUM 9.3 MG/DL (8.5-10.1); CARBON DIOXIDE 21 MMOL/L (21-32); CHLORIDE 103 MMOL/L (98-107); CREATININE SERUM 0.79 MG/DL (0.60-1.30); GFR ESTIMATED > 60; GLUCOSE 127 MG/DL (70-105); POTASSIUM 3.6 MMOL/L (3.6-5.0); SODIUM 138 MMOL/L (135-145); TOTAL PROTEIN 7.3 GM/DL (6.4-8.2)
--- NOTE | 2018-02-16 17:29 | Diagnostic Imaging Report ---
INDICATION: Dehydration. Portable chest at 05:21 p.m. FINDINGS: Heart size and pulmonary vascularity are normal. Lungs are clear. There are no effusions or pneumothoraces. IMPRESSION: Negative chest. Dictated on workstation # [id number]
[2018-02-16 17:50] LABS: BILIRUBIN,URINE NEGATIVE (NEGATIVE); CLARITY,URINE CLEAR; COLOR,URINE YELLOW; GLUCOSE, URINE (UA) NEGATIVE (NEGATIVE); KETONES,URINE NEGATIVE (NEGATIVE); LEUKOCYTE ESTERASE ,URINE NEGATIVE (NEGATIVE); NITRITE,URINE NEGATIVE (NEGATIVE); PH,URINE 6 (5-9); PROTEIN,URINE 1+ (NEGATIVE); UROBILINOGEN,URINE 1 MG/DL (NORMAL)
[2018-02-16 17:57] LABS: BACTERIA,URINE FEW /HPF; SQUAMOUS EPITHELIAL CELL,UR 0-2 /HPF; WBC,URINE RARE /HPF
[2018-02-16] MEDS ORDERED: ENALAPRIL 5 MG (VASOTEC) TAB PO ONE (18:00)
--- NOTE | 2018-02-16 18:34 | Diagnostic Imaging Report ---
INDICATION: Weakness/dehydration EXAM: CT head without contrast. FINDINGS: There is generalized atrophy. There are no masses or hemorrhages. There are no extra-axial fluid collections. IMPRESSION: Diffuse cerebral degeneration. No acute abnormality is seen. Dictated by: Dictated on workstation # [id number]
[2018-02-16 19:15] VITALS: BP 184/83
== END 2018-02-16 19:15 | disposition home or self-care (01) ==
LOC: EDUNIT# 16:20 → ER 16:20
DX: R53.1 Weakness (principal); R41.0 Disorientation, unspecified; I10 Essential (primary) hypertension; R63.8 Other symptoms and signs concerning food and fluid intake; E86.1 Hypovolemia; F03.90 Unspecified dementia, unspecified severity, without behavioral disturbance, psychotic disturbance, mood disturbance, and anxiety; Z87.448 Personal history of other diseases of urinary system; Z88.5 Allergy status to narcotic agent; Z88.8 Allergy status to other drugs, medicaments and biological substances; Z79.82 Long term (current) use of aspirin; Z87.891 Personal history of nicotine dependence
CPT/HCPCS: 36415; 70450; 71045; 80053; 81000; 83605; 84484; 85025; 85610; 85730; 87040; 87088; 93005

== ENCOUNTER 2018-05-04 13:48 | Outpatient (CLI) | payer MEDICARE, OTHER ==
[~2018-05-04] VITALS: Ht 154.9 cm; Wt 55.8 kg
[2018-05-04] MEDS ORDERED: SERT50TA9 PO (14:23)
[2018-05-04] MEDS ORDERED: ENAL5TAB PO (14:23)
[2018-05-04 14:33] LABS: BASOPHILS # (AUTO) 0.1 10^3/uL (0.0-0.1); BASOPHILS % (AUTO) 1 % (0-10); EOSINOPHILS # (AUTO) 0.4 10^3/uL (0.0-0.3); EOSINOPHILS % (AUTO) 5 % (0-10); HEMATOCRIT 38 % (35-52); HEMOGLOBIN 11.6 G/DL (11.5-16.0); LYMPHOCYTES # (AUTO) 2.6 X 10^3 (1.0-4.0); LYMPHOCYTES % (AUTO) 32 % (12-44); MEAN CORPUSCULAR HEMOGLOBIN 29 PG (25-34); MEAN CORPUSCULAR HGB CONC 31 G/DL (32-36); MEAN CORPUSCULAR VOLUME 94 FL (80-99); MONOCYTES # (AUTO) 0.8 X 10^3 (0.0-1.0); MONOCYTES % (AUTO) 10 % (0-12); NEUTROPHILS # (AUTO) 4.2 X 10^3 (1.8-7.8); NEUTROPHILS % (AUTO) 52 % (42-75); PLATELET COUNT 308 10^3/uL (130-400); RED BLOOD COUNT 3.99 10^6/uL (4.35-5.85); RED CELL DISTRIBUTION WIDTH 14.7 % (10.0-14.5)
[2018-05-04 14:49] LABS: BUN/CREATININE RATIO 12; CALCIUM 9.2 MG/DL (8.5-10.1); CARBON DIOXIDE 25 MMOL/L (21-32); CHLORIDE 106 MMOL/L (98-107); CREATININE SERUM 0.75 MG/DL (0.60-1.30); GFR ESTIMATED > 60; GLUCOSE 111 MG/DL (70-105); POTASSIUM 3.8 MMOL/L (3.6-5.0); SODIUM 139 MMOL/L (135-145)
== END 2018-05-04 14:20 | disposition home or self-care (01) ==
LOC: PREOP 13:48
PROVIDERS: ATTEND Otolaryngology Otolaryngology/Facial Plastic Surgery
DX: Z01.812 Encounter for preprocedural laboratory examination (principal); Z11.2 Encounter for screening for other bacterial diseases; L98.9 Disorder of the skin and subcutaneous tissue, unspecified
CPT/HCPCS: 36415; 80048; 85025; 87081

== ENCOUNTER 2018-05-08 06:05 | Day surgery (SDC) | payer MEDICARE, OTHER ==
[~2018-05-08] VITALS: Ht 154.9 cm; Wt 55.8 kg
[~2018-05-08 06:05] MED LIST changes: +ENAL5TAB PO; +SERT50TA9 PO
[2018-05-08 06:10] VITALS: BP 147/65
[2018-05-08] MEDS ORDERED: LACTATED RINGERS 1,000 ML IV PRN (06:12)
--- OUTSIDE RECORDS SUMMARY | 2018-05-08 06:12 | XMS REPORT | Continuity of Care Document ---
Author Author [facility] Organization [facility] Address Unknown Phone Unavailable Allergies Active Description Code Type Severity Reaction Onset Reported/Identified Relationship to Patient Clinical Status Yes CODEINE SULFATE UNKNOWN OTHER Yes belladonna alkaloids [id number] Drug Allergy Mild NAUSEA 02/09/2013 Yes codeine [id number] Drug Allergy Unknown N/A 01/25/2015 Medications Medication [...] RAMÍREZ MD Ot 414.01 CORONARY ATHEROSCLEROSIS OF [place] CORON 02/06/2016 MELISSA RAMÍREZ MD Ot 492.8 EMPHYSEMA NEC 02/06/2016 MELISSA RAMÍREZ MD Ot 783.21 LOSS OF WEIGHT 02/06/2016 MELISSA RAMÍREZ MD Ot 787.01 NAUSEA WITH VOMITING 02/06/2016 XI NORIEGA APRN Ot N39.0 URINARY TRACT INFECTION, SITE NOT SPECIF 02/06/2016 XI NORIEGA MANUFACTURING MANAGER Ot R11.0 NAUSEA 02/06/2016 XI NORIEGA MANUFACTURING MANAGER Ot R50.9 FEVER, UNSPECIFIED 02/06/2016 XI NORIEGA MANUFACTURING MANAGER Ot Z79.82 JAIL (CURRENT) USE OF ASPIRIN 02/06/2016 XI NORIEGA MANUFACTURING MANAGER Ot Z79.899 OTHER EP SPECIALIST (CURRENT) DRUG THERAPY 02/07/2016 XI NORIEGA MANUFACTURING MANAGER Ot N39.0 URINARY TRACT INFECTION, SITE NOT SPECIF 02/07/2016 XI NORIEGA MANUFACTURING MANAGER Ot R11.0 NAUSEA 02/07/2016 XI NORIEGA APRN Ot R50.9 FEVER, UNSPECIFIED 02/07/2016 XI NORIEGA MANUFACTURING MANAGER Ot Z79.82 EP SPECIALIST (CURRENT) USE OF ASPIRIN 02/07/2016 XI NORIEGA MANUFACTURING MANAGER Ot Z79.899 OTHER EP SPECIALIST (CURRENT) DRUG THERAPY 02/13/2016 Ot 816.01 FX [...] MD R Ot 737.30 IDIOPATHIC SCOLIOSIS 02/13/2016 MELISSA RAMÍREZ MD R Ot 294.20 DEMENTIA, UNSPECIFIED, WITHOUT BEHAVIORA 02/13/2016 MELISSA RAMÍREZ MD R Ot 414.01 CORONARY ATHEROSCLEROSIS OF [place] CORON 02/13/2016 MELISSA RAMÍREZ MD R Ot 492.8 EMPHYSEMA NEC 02/13/2016 MELISSA RAMÍREZ MD R Ot 783.21 LOSS OF WEIGHT 02/13/2016 MELISSA RAMÍREZ MD R Ot 787.01 NAUSEA WITH VOMITING 09/04/2016 MELISSA RAMÍREZ MD R Ot M41.9 SCOLIOSIS, UNSPECIFIED 09/04/2016 MELISSA RAMÍREZ MD R Ot M47.816 SPONDYLOSIS W/O MYELOPATHY OR RADICULOPA 09/04/2016 MELISSA RAMÍREZ MD R Ot M48.54XA COLLAPSED VERTEBRA, NEC, THORACIC REGION 09/26/2016 MELISSA RAMÍREZ MD R Ot M41.9 SCOLIOSIS, UNSPECIFIED 09/26/2016 MELISSA RAMÍREZ MD R Ot M47.816 SPONDYLOSIS W/O MYELOPATHY OR RADICULOPA 09/26/2016 MELISSA RAMÍREZ MD R Ot M48.54XA COLLAPSED [place], NEC, THORACIC REGION 10/01/2016 MELISSA RAMÍREZ MD R Ot M41.9 SCOLIOSIS, UNSPECIFIED 10/01/2016 MELISSA RAMÍREZ MD R Ot M47.816 SPONDYLOSIS W/O MYELOPATHY OR RADICULOPA 10/01/2016 MELISSA RAMÍREZ MD R Ot M48.54XA COLLAPSED [place], NEC, THORACIC REGION 01/05/2018 YEE JOHN W 290.41 VASCULAR DEMENTIA, WITH DELIRIUM 01/05/2018 YEE JOHN W 296.34 01/05/2018 YEE JOHN W 297.1 01/05/2018 YEE JOHN W 300.00 01/05/2018 YEE JOHN W 305.1 TOBACCO USE DISORDER 01/05/2018 YEE JOHN W 401.0 MALIGNANT ESSENTIAL HYPERTENSION 01/05/2018 YEE JOHN W 783.21 LOSS OF WEIGHT 01/05/2018 YEE JOHN W 786.07 WHEEZING 01/05/2018 YEE JOHN W 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 01/05/2018 JOHN FRAIRE W F22 DELUSIONAL DISORDERS 01/05/2018 JOHN FRAIRE W 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, RECURRENT, SEVERE W PSYCH SYMPTOMS 01/05/2018 JOHN FRAIRE F41.9 ANXIETY DISORDER, UNSPECIFIED 01/05/2018 WILLIE FRAIREY W I10 ESSENTIAL (PRIMARY) HYPERTENSION 01/05/2018 JOHN FRAIRE W R06.2 WHEEZING 01/05/2018 JOHN FRAIRE W R63.4 ABNORMAL WEIGHT LOSS 01/05/2018 JOHN FRAIRE Z72.0 TOBACCO USE 01/07/2018 MELISSA RAMÍREZ MD R Ot 787.01 NAUSEA WITH VOMITING 01/07/2018 MELISSA RAMÍREZ MD R Ot 618.1 UTERINE PROLAPSE 01/07/2018 MARY NAZARIO DO Ot V72.84 EXAM PRE-OPERATIVE NOS 01/07/2018 Ot 787.01 NAUSEA WITH VOMITING 01/07/2018 MELISSA RAMÍREZ MD R Ot 496 CHR AIRWAY OBSTRUCT NEC 01/07/2018 MELISSA RAMÍREZ MD R Ot 737.30 IDIOPATHIC SCOLIOSIS 01/07/2018 MELISSA RAMÍREZ MD R Ot 294.20 DEMENTIA, UNSPECIFIED, WITHOUT BEHAVIORA 01/07/2018 MELISSA RAMÍREZ MD R Ot 414.01 CORONARY ATHEROSCLEROSIS OF [place] CORON 01/07/2018 MELISSA RAMÍREZ MD R Ot 492.8 EMPHYSEMA NEC 01/07/2018 MELISSA RAMÍREZ MD R Ot 783.21 LOSS OF WEIGHT 01/07/2018 MELISSA RAMÍREZ MD R Ot 787.01 NAUSEA WITH VOMITING 01/07/2018 MELISSA RAMÍREZ MD R Ot M41.9 SCOLIOSIS, UNSPECIFIED 01/07/2018 MELISSA RAMÍREZ MD R Ot M47.816 SPONDYLOSIS W/O MYELOPATHY OR RADICULOPA 01/07/2018 MELISSA RAMÍREZ MD R Ot M48.54XA COLLAPSED [place], NEC, THORACIC REGION 01/07/2018 MELISSA RAMÍREZ MD R Ot 618.1 UTERINE PROLAPSE 01/07/2018 MARY NAZARIO DO Ot V72.84 EXAM PRE-OPERATIVE NOS 01/07/2018 Ot 787.01 NAUSEA WITH VOMITING 01/07/2018 MELISSA RAMÍREZ MD Ot 496 CHR AIRWAY OBSTRUCT NEC 01/07/2018 MELISSA RAMÍREZ MD Ot 737.30 IDIOPATHIC SCOLIOSIS 01/07/2018 MELISSA RAMÍREZ MD Ot 294.20 DEMENTIA, UNSPECIFIED, WITHOUT BEHAVIORA 01/08/2018 MELISSA RAMÍREZ MD Ot 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, LEFT WRIST 01/08/2018 MELISSA RAMÍREZ MD Ot M19.032 PRIMARY OSTEOARTHRITIS, LEFT WRIST 01/08/2018 MELISSA RAMÍREZ MD Ot W10.2XXS FALL (ON)(FROM) INCLINE, SEQUELA Procedures [...] rickettsii IgG antibody assay (units/volume) <1:16 <1:16 Le[place] spotted fever panel <1:10 <1:10 Francisella tularensis [...] rickettsii IgG antibody assay (units/volume) < <1:16 [place] spotted fever panel < <1:10 Francisella tularensis [...] Propoxyphene NEGATIVE NEGATIVE Tricyclic Antidepressant NEGATIVE NEGATIVE Complete blood count (CBC) with automated white blood cell (WBC) differential - 02/16/18 16:40 Blood leukocytes automated count (number/volume) 10.7 10*3/uL 4.3-11.0 Blood erythrocytes automated count (number/volume) 4.40 10*6/uL 4.35-5.85 Venous blood hemoglobin measurement (mass/volume) 13.4 g/dL 11.5-16.0 Blood hematocrit (volume fraction) 41 % 35-52 Automated erythrocyte mean corpuscular volume 93 [foz_us] 80-99 Automated erythrocyte mean corpuscular hemoglobin (mass per erythrocyte) 31 pg 25-34 Automated erythrocyte mean corpuscular hemoglobin concentration measurement ( mass/volume) 33 g/dL 32-36 Automated erythrocyte distribution width ratio 13.2 % 10.0-14.5 Automated blood platelet count (count/volume) 264 10*3/uL 130-400 Automated blood platelet mean volume measurement 10.4 [foz_us] 7.4-10.4 Automated blood neutrophils/100 leukocytes 62 % 42-75 Automated blood lymphocytes/100 leukocytes 22 % 12-44 Blood monocytes/100 leukocytes 14 % 0-12 Automated blood eosinophils/100 leukocytes 2 % 0-10 Automated blood basophils/100 leukocytes 0 % 0-10 Blood neutrophils automated count (number/volume) 6.6 10*3 1.8-7.8 Blood lymphocytes automated count (number/volume) 2.4 10*3 1.0-4.0 Blood monocytes automated count (number/volume) 1.5 10*3 0.0-1.0 Automated eosinophil count 0.2 10*3/uL 0.0-0.3 Automated blood basophil count (count/volume) 0.0 10*3/uL 0.0-0.1 PT panel in platelet poor plasma by coagulation assay - 02/16/18 16:40 Prothrombin time (PT) in platelet poor plasma by coagulation assay 13.3 s 12.2-14.7 INR in platelet poor plasma or blood by coagulation assay 1.0 0.8-1.4 Activated partial thromboplastin time (aPTT) in platelet poor plasma bycoagulation assay - 02/16/18 16:40 Activated partial thromboplastin time (aPTT) in platelet poor plasma bycoagulation assay 29 s 24-35 Blood lactic acid measurement (moles/volume) - 02/16/18 16:40 Blood lactic acid measurement (moles/volume) 1.10 mmol/L 0.50-2.00 Comprehensive metabolic panel - 02/16/18 16:40 Serum or plasma sodium measurement (moles/volume) 138 mmol/L 135-145 Serum or plasma potassium measurement (moles/volume) 3.6 mmol/L 3.6-5.0 Serum or plasma chloride measurement (moles/volume) 103 mmol/L 98-107 Carbon dioxide 21 mmol/L 21-32 Serum or plasma anion gap determination (moles/volume) 14 mmol/L 5-14 Serum or plasma urea nitrogen measurement (mass/volume) 10 mg/dL 7-18 Serum or plasma creatinine measurement (mass/volume) 0.79 mg/dL 0.60-1.30 Serum or plasma urea nitrogen/creatinine mass ratio 13 NRG Serum or plasma creatinine measurement with calculation of estimated glomerular filtration rate > NRG Serum or plasma glucose measurement (mass/volume) 127 mg/dL 70-105 Serum or plasma calcium measurement (mass/volume) 9.3 mg/dL 8.5-10.1 Serum or plasma total bilirubin measurement (mass/volume) 0.5 mg/dL 0.1-1.0 Serum or plasma alkaline phosphatase measurement (enzymatic activity/volume) 84 U/L 40-136 Serum or plasma aspartate aminotransferase measurement (enzymatic activity/ volume) 15 U/L 5-34 Serum or plasma alanine aminotransferase measurement (enzymatic activity/volume ) 9 U/L 0-55 Serum or plasma protein measurement (mass/volume) 7.3 g/dL 6.4-8.2 Serum or plasma albumin measurement (mass/volume) 3.9 g/dL 3.2-4.5 CALCIUM CORRECTED 9.4 mg/dL 8.5-10.1 Serum or plasma troponin i.cardiac measurement (mass/volume) - 02/16/18 16:40 Serum or plasma troponin i.cardiac measurement (mass/volume) < ng/ mL <0.30 Bacterial blood culture - 02/16/18 16:40 Bacterial blood culture NG NRG Complete urinalysis with reflex to culture - 02/16/18 17:41 Urine color determination YELLOW NRG Urine clarity determination CLEAR NRG Urine pH measurement by test strip 6 5-9 Specific gravity of urine by test strip 1.015 1.016- 1.022 Urine protein assay by test strip, semi-quantitative 1+ NEGATIVE Urine glucose detection by automated test strip NEGATIVE NEGATIVE Erythrocytes detection in urine sediment by light microscopy 4+ NEGATIVE Urine ketones detection by automated test strip NEGATIVE NEGATIVE Urine nitrite detection by test strip NEGATIVE NEGATIVE Urine total bilirubin detection by test strip NEGATIVE NEGATIVE Urine urobilinogen measurement by automated test strip (mass/volume) 1 mg/dL NORMAL Urine leukocyte esterase detection by dipstick NEGATIVE NEGATIVE Automated urine sediment erythrocyte count by microscopy (number/high power field) [HPF] NRG Automated urine sediment leukocyte count by microscopy (number/high power field ) RARE NRG Bacteria detection in urine sediment by light microscopy FEW NRG Squamous epithelial cells detection in urine sediment by light microscopy 0-2 NRG Crystals detection in urine sediment by light microscopy NONE NRG Casts detection in urine sediment by light microscopy NONE NRG Mucus detection in urine sediment by light microscopy LARGE NRG Complete urinalysis with reflex to culture NO NRG Bacterial urine culture - 02/16/18 17:41 Bacterial urine culture NG NRG Bacterial blood culture - 02/16/18 17:45 Bacterial blood culture NG NRG Complete blood count (CBC) with automated white blood cell (WBC) differential - 05/04/18 14:15 Blood leukocytes automated count (number/volume) 8.0 10*3/uL 4.3-11.0 Blood erythrocytes automated count (number/volume) 3.99 10*6/uL 4.35-5.85 Venous blood hemoglobin measurement (mass/volume) 11.6 g/dL 11.5-16.0 Blood hematocrit (volume fraction) 38 % 35-52 Automated erythrocyte mean corpuscular volume 94 [foz_us] 80-99 Automated erythrocyte mean corpuscular hemoglobin (mass per erythrocyte) 29 pg 25-34 Automated erythrocyte mean corpuscular hemoglobin concentration measurement ( mass/volume) 31 g/dL 32-36 Automated erythrocyte distribution width ratio 14.7 % 10.0-14.5 Automated blood platelet count (count/volume) 308 10*3/uL 130-400 Automated blood platelet mean volume measurement 10.0 [foz_us] 7.4-10.4 Automated blood neutrophils/100 leukocytes 52 % 42-75 Automated blood lymphocytes/100 leukocytes 32 % 12-44 Blood monocytes/100 leukocytes 10 % 0-12 Automated blood eosinophils/100 leukocytes 5 % 0-10 Automated blood basophils/100 leukocytes 1 % 0-10 Blood neutrophils automated count (number/volume) 4.2 10*3 1.8-7.8 Blood lymphocytes automated count (number/volume) 2.6 10*3 1.0-4.0 Blood monocytes automated count (number/volume) 0.8 10*3 0.0-1.0 Automated eosinophil count 0.4 10*3/uL 0.0-0.3 Automated blood basophil count (count/volume) 0.1 10*3/uL 0.0-0.1 Whole blood basic metabolic panel - 05/04/18 14:15 Serum or plasma sodium measurement (moles/volume) 139 mmol/L 135-145 Serum or plasma potassium measurement (moles/volume) 3.8 mmol/L 3.6-5.0 Serum or plasma chloride measurement (moles/volume) 106 mmol/L 98-107 Carbon dioxide 25 mmol/L 21-32 Serum or plasma anion gap determination (moles/volume) 8 mmol/L 5-14 Serum or plasma urea nitrogen measurement (mass/volume) 9 mg/dL 7-18 Serum or plasma creatinine measurement (mass/volume) 0.75 mg/dL 0.60-1.30 Serum or plasma urea nitrogen/creatinine mass ratio 12 NRG Serum or plasma creatinine measurement with calculation of estimated glomerular filtration rate > NRG Serum or plasma glucose measurement (mass/volume) 111 mg/dL 70-105 Serum or plasma calcium measurement (mass/volume) 9.2 mg/dL 8.5-10.1 Methicillin resistant Staphylococcus aureus (MRSA) screening culture - 14:15 Methicillin resistant Staphylococcus aureus (MRSA) screening culture NEG NRG Encounters ACCT No. Visit Date/Time Discharge Status Pt. Type Provider Facility Loc./Unit Complaint [id number] 05/04/2018 13:48:00 05/04/2018 14:20:00 DIS Outpatient LEOBARDO BURGESS, LIBIA Willis [facility] PREOP RIGHT NASAL LESION/ RIGHT CHEEK LESION [id number] 02/16/2018 16:20:00 02/16/2018 19:15:00 DIS Emergency RACQUEL BURGESS, JAMES Lee [facility] ER POSS DEHYDRATED/ WEAKNESS [id number] 01/07/2018 11:49:00 01/07/2018 23:59:59 CLS Outpatient DARRELL BURGESS, MELISSA Cordova [facility] RAD W10.2XXS [id number] 09/03/2016 11:55:00 09/03/2016 23:59:59 CLS Outpatient MELISSA RAMÍREZ MD [facility] RAD M54.40 [id number] 02/06/2016 14:26:00 02/06/2016 16:37:00 DIS Emergency XI NORIEGA APRN [facility] ER FEVER NAUSEA [id number] 01/25/2015 09:40:00 01/25/2015 11:35:00 DIS Outpatient ISAIAH COOPER MD [facility] SDC ABDOMINAL PAIN/NV [id number] 08/16/2014 13:09:00 08/16/2014 23:59:59 CLS Outpatient MELISSA RAMÍREZ MD [facility] RAD WT LOSS,VOMITTING,NAUSEA [id number] 08/15/2014 17:08:00 08/15/2014 17:08:00 CAN Preadmit MELISSA RAMÍREZ MD [facility] LAB WT LOSS, N/V/D [id number] 05/23/2014 13:59:00 05/23/2014 17:40:00 DIS Emergency RACQUEL BURGESS, JAMES T [facility] ER NAUSEATED/VOMITING [id number] 01/28/2014 15:20:00 01/28/2014 23:59:59 CLS Outpatient [id number] 12/30/2013 14:51:00 12/30/2013 23:59:59 CLS Outpatient MELISSA RAMÍREZ MD [facility] RAD MEMORY LOSS [id number] 08/16/2013 15:05:00 08/16/2013 23:59:59 CLS Outpatient MELISSA RAMÍREZ MD [facility] RAD COUGH, [id number] 02/09/2013 10:03:00 02/09/2013 16:00:00 DIS [facility] [id number] 11/12/2012 10:53:00 02/08/2013 00:01:00 DIS Outpatient MELISSA RAMÍREZ MD [facility] LAB NAUSEA,VOMITING [id number] 02/04/2013 07:14:00 02/04/2013 23:59:59 CLS Outpatient MARY NAZARIO DO [facility] PREOP IRREGULAR BOWEL MOVEMENTS [id number] 12/30/2012 16:00:00 12/30/2012 23:59:59 CLS Outpatient MELISSA RAMÍREZ MD [facility] RAD FEELING OF DROPPING [id number] 11/10/2012 11:53:00 11/10/2012 23:59:59 CLS Outpatient MELISSA RAMÍREZ MD [facility] RAD VOMITING,NAUSEA [id number] 05/08/2018 07:30:00 PEN Preadmit LEOBARDO BURGESS, LIBIA Willis [facility] SDC RIGHT NASAL AND RIGHT CHEEK LESION [id number] 02/09/2013 00:00:00 Document Registration [id number] 04/21/2012 02:15:00 Document Registration [id number] 01/26/2012 18:40:00 Document Registration [id number] 12/31/2011 13:17:00 Document Registration [id number] 12/12/2010 18:28:00 Document Registration [id number] 11/08/2010 14:44:00 Document Registration [id number] 11/08/2010 09:46:00 Document Registration [id number] 12/24/2017 13:17:00 01/05/2018 13:24:00 DIS Inpatient [facility] JOHN [facility] [id number] 12/24/2017 15:28:14 Document Registration
[2018-05-08] MEDS ORDERED: fentaNYL INJECTION 100 MCG/2 ML AMP ONE (06:50)
[2018-05-08] MEDS ORDERED: SEVOFLURANE (ULTANE) 15 ML INHAL SOLN ONE ×3 (06:52→07:05)
[2018-05-08] MEDS ORDERED: proPOfol 200 MG/20 ML (DIPRIVAN) VIAL IV ONE (06:52)
[2018-05-08] MEDS ORDERED: DEXAMETHASONE 10 MG/ML (DECADRON) 1 ML VIAL ONE (06:52)
[2018-05-08] MEDS ORDERED: LIDOCAINE PF 2% 5 ML (XYLOCAINE) VIAL ONE (06:52)
[2018-05-08] MEDS ORDERED: ONDANSETRON 4 MG/2 ML (SDV) Z0FRAN ONE (06:52)
[2018-05-08] MEDS ORDERED: LIDOCAINE/EPI 1%-1:100,000 (XYLOCAINE) 20ML ONE (06:54)
[2018-05-08] MEDS ORDERED: MUPIROCIN 2% OINT 22 GM (BACTROBAN) TUBE ONE (06:54)
[2018-05-08] MEDS ORDERED: BSS 15 ML ONE (06:54)
--- NOTE | 2018-05-08 06:55 | Progress Note-Pre Operative ---
Pre-Operative Progress Note H&P Reviewed The H&P was reviewed, patient examined and no changes noted. Date Seen by Provider: May 08, 2018 Time Seen by Provider: 06:50 Date H&P Reviewed: May 08, 2018 Time H&P Reviewed: 06:50 Pre-Operative Diagnosis: Right Nasal Lesion, Bilat Cheek Lesions LIBIA BOOTH MD May 08, 2018 06:55
--- NOTE | 2018-05-08 08:44 | Progress Note-Post Operative ---
Post-Operative Progess Note Surgeon (s)/Postal Service Mail Processor (s) Surgeon LIBIA BOOTH MD Postal Service Mail Processor n/a Pre-Operative Diagnosis Right Nasal Lesion, Bilat Cheek Lesions Post-Operative Diagnosis same Post-Op Procedure Note Date of Procedure: May 08, 2018 Name of Procedure Performed: Excision of Multiple FAcial Lesion, Reconsturction of NOse with FTSG, Donor site Right Neck, Intermediate Repair of bilat Cheek sites Description & Findings Description and Findings: n/a Anesthesia Type lma Estimated Blood Loss minimal Packing none. Specimen(s) collected/removed right nasal lesion-basal cell with clear margins bilat cheek lesions-benign LIBIA BOOTH MD May 08, 2018 08:44
[2018-05-08] MEDS ORDERED: ACETAMINOPHEN 325 MG TABLET PO PRN ×2 (08:45)
[2018-05-08 09:45] VITALS: BP 131/56
[2018-05-08] MEDS ORDERED: CEPH-507 PO (10:05)
[2018-05-08] MEDS ORDERED: TRAM50TA2 PO (10:05)
[2018-05-08 10:15] VITALS: BP 131/59
[2018-05-08 10:45] VITALS: BP 125/61
--- NOTE | 2018-05-08 12:11 | Anesthesia-General Post-Op ---
General Patient Condition Mental Status/LOC: Same as Preop Cardiovascular: Satisfactory Nausea/Vomiting: Absent Respiratory: Satisfactory Pain: Controlled Complications: Absent Post Op Complications Complications None Follow Up Care/Instructions Patient Instructions None needed. Anesthesia/Patient Condition Patient Condition Patient is doing well, no complaints, stable vital signs, no apparent adverse anesthesia problems. No complications reported per nursing. JOSE RUBIO CRNA May 08, 2018 12:11
== END 2018-05-08 11:00 | disposition home or self-care (01) ==
LOC: SDC 06:05
PROVIDERS: ATTEND Otolaryngology Otolaryngology/Facial Plastic Surgery
DX: C44.311 Basal cell carcinoma of skin of nose (principal); L72.0 Epidermal cyst; I10 Essential (primary) hypertension; K21.9 Gastro-esophageal reflux disease without esophagitis; F03.90 Unspecified dementia, unspecified severity, without behavioral disturbance, psychotic disturbance, mood disturbance, and anxiety; Z87.891 Personal history of nicotine dependence; Z79.82 Long term (current) use of aspirin; Z79.899 Other long term (current) drug therapy

== ENCOUNTER 2019-04-17 14:53 | Emergency (ER) | payer MEDICARE, OTHER ==
[~2019-04-17] VITALS: Ht 152 cm; Wt 51.0 kg
[~2019-04-17 14:53] MED LIST changes: +CEPH-507 PO; +TRAM50TA2 PO
--- NOTE | 2019-04-17 15:28 | ED Fall/Injury ---
General Chief Complaint: Trauma-Non Activation Stated Complaint: FALL/R SIDE RIB PAIN Source: patient, family Exam Limitations: other (Alzheimer's) History of Present Illness Date Seen by Provider: Apr 17, 2019 Time Seen by Provider: 15:23 Initial Comments This 88-year-old white female presents after she fell missing the bed 2 nights ago sustaining blunt trauma to the right chest wall. The patient is complaining of pain over the right chest in the anterior axillary line. The pain is severe. It is characterized as sharp in nature. It is made worse with deep breath. Patient has had no associated hemoptysis. She denies hematuria. She denies hematemesis or black or tarry stool. The patient's family denies other injury in her fall. Allergies and Home Medications Allergies Coded Allergies: codeine (Unverified Allergy, Unknown, 01/25/15) belladonna alkaloids (Unverified Adverse Reaction, Mild, NAUSEA, 02/09/13) Home Medications Ca Carbonate/Vitamin D3/Vit K 1 Each Tab.chew, 1 EACH PO DAILY, (Reported) Cephalexin 500 Mg Capsule, 500 MG PO TID Prescribed by: BRNADIE GARDNER on 05/08/18 1005 Enalapril Maleate 5 Mg Tablet, 5 MG PO DAILY, (Reported) Sertraline HCl 50 Mg Tablet, 50 MG PO DAILY, (Reported) Tramadol HCl 50 Mg Tablet, 50 MG PO TID Prescribed by: BRANDIE GARDNER on 05/08/18 1005 Patient Home Medication List Home Medication List Reviewed: Yes Review of Systems Review of Systems Constitutional: No chills, No fever Eyes: No Symptoms Reported Ears, Nose, Mouth, Throat: no symptoms reported Cardiovascular: chest pain (with inspiration) Gastrointestinal: abdominal pain Genitourinary: no symptoms reported Musculoskeletal: no symptoms reported Skin: no symptoms reported Psychiatric/Neurological: No Symptoms Reported Past Izwkhbn-Utmqgk-Uxaxff Hx Past Med/Social Hx: Reviewed Nursing Past Med/Soc Hx Patient Social History Former Smoker, Quit: Feb 05, 2000 2nd Hand Smoke Exposure: Yes Recent Foreign Travel: No Contact w/Someone Who Travel: No Recent Hopitalizations: No Immunizations Up To Date Date of Influenza Vaccine: Jan 26, 2014 Past Medical History Surgeries: Yes (oral sx) Abdominal, Appendectomy, Oophorectomy, Orthopedic Respiratory: No Cardiac: Yes Hypertension Neurological: Yes Dementia Genitourinary: Yes Bladder Infection Gastrointestinal: No Ulcer Musculoskeletal: Yes Arthritis, Fractures Endocrine: No HEENT: No Cancer: No Psychosocial: No Integumentary: Yes (skin lesion) Blood Disorders: No Physical Exam Vital Signs Vital Signs - First Documented 04/17/19 15:17 Pulse 71 Resp 22 B/P (MAP) 172/76 (108) Pulse Ox 97 O2 Delivery Room Air Capillary Refill : Height, Weight, BMI Height: 5'1.00" Weight: 123lbs. 0.0oz. 55.027758hb; 23.2 BMI Method:Stated General Appearance: moderate distress, cachetic HEENT: normal ENT inspection Neck: full range of motion, supple Cardiovascular: regular rate, rhythm Respiratory: decreased breath sounds, other (was marked tenderness to palpation over the right lateral ribs in the anterior axillary line from approximately the sixth through the eighth ribs) Gastrointestinal: normal bowel sounds, non tender Back: normal inspection Extremities: normal range of motion, non-tender Neurologic/Psychiatric: sales representative advertising II-XII nml as tested, no motor/sensory deficits, alert, normal mood/affect, oriented x 3 Skin: normal color, warm/dry Earl Coma Score Best Eye Response: (4) Open Spontaneously Best Verbal Response: (5) Oriented Best Motor Response: (6) Obeys Commands Earl Total: 15 Progress/Results/Core Measures Results/Orders Lab Results Laboratory Tests Test 04/17/19 15:35 04/17/19 16:04 Range/Units White Blood Count 6.7 4.3-11.0 10^3/uL Red Blood Count 4.13 L 4.35-5.85 10^6/uL Hemoglobin 12.5 11.5-16.0 G/DL Hematocrit 39 35-52 % Mean Corpuscular Volume 94 80-99 FL Mean Corpuscular Hemoglobin 30 25-34 PG Mean Corpuscular Hemoglobin Concent 32 32-36 G/DL Red Cell Distribution Width 13.9 10.0-14.5 % Platelet Count 250 130-400 10^3/uL Mean Platelet Volume 9.9 7.4-10.4 FL Neutrophils (%) (Auto) 51 42-75 % Lymphocytes (%) (Auto) 32 12-44 % Monocytes (%) (Auto) 12 0-12 % Eosinophils (%) (Auto) 4 0-10 % Basophils (%) (Auto) 1 0-10 % Neutrophils # (Auto) 3.4 1.8-7.8 X 10^3 Lymphocytes # (Auto) 2.1 1.0-4.0 X 10^3 Monocytes # (Auto) 0.8 0.0-1.0 X 10^3 Eosinophils # (Auto) 0.3 0.0-0.3 10^3/uL Basophils # (Auto) 0.1 0.0-0.1 10^3/uL Sodium Level 142 135-145 MMOL/L Potassium Level 4.0 3.6-5.0 MMOL/L Chloride Level 107 98-107 MMOL/L Carbon Dioxide Level 24 21-32 MMOL/L Anion Gap 11 5-14 MMOL/L Blood Urea Nitrogen 11 7-18 MG/DL Creatinine 0.95 0.60-1.30 MG/DL Estimat Glomerular Filtration Rate 56 BUN/Creatinine Ratio 12 Glucose Level 82 70-105 MG/DL Calcium Level 8.6 8.5-10.1 MG/DL Corrected Calcium 8.8 8.5-10.1 MG/DL Total Bilirubin 0.4 0.1-1.0 MG/DL Aspartate Amino Transf (AST/SGOT) 14 5-34 U/L Alanine Aminotransferase (ALT/SGPT) 9 0-55 U/L Alkaline Phosphatase 86 40-136 U/L Total Protein 6.6 6.4-8.2 GM/DL Albumin 3.7 3.2-4.5 GM/DL My Orders Orders - CASEY RUANO MD Iv 1000 Ml (Sodium Chloride 0.9%) (04/17/19 15:30) Fentanyl Injection (Sublimaze Injection (04/17/19 15:30) Ct Chest/Abdomen/Pelvis Wo (04/17/19 15:20) Cbc With Automated Diff (04/17/19 15:20) Comprehensive Metabolic Panel (04/17/19 15:20) Ua Culture If Indicated (04/17/19 15:20) Medications Given in ED Current Medications Medications Dose Ordered Sig/Elina Route Start Time Stop Time Status Last Admin Dose Admin Fentanyl Citrate 50 mcg ONCE ONCE IVP 04/17/19 15:30 04/17/19 15:31 DC 04/17/19 15:34 50 MCG Vital Signs/I&O 04/17/19 15:17 Pulse 71 Resp 22 B/P (MAP) 172/76 (108) Pulse Ox 97 O2 Delivery Room Air Progress Progress Note : Time: 16:23 Progress Note The patient's CT of the chest abdomen pelvis film demonstrated evidence of acute pathology. The patient's CBC was unremarkable. Patient's pain was significantly improved with IV fentanyl 50 g. Departure Impression Primary Impression: Rib fractures Qualified Codes: S22.31XA - Fracture of one rib, right side, initial encounter for closed fracture Disposition: HOME, SELF-CARE Condition: Improved Departure-Patient Inst. Decision time for Depature: 16:24 Referrals: MELISSA RAMÍREZ MD (PCP/Family) Primary Care Physician Patient Instructions: Rib Fractures in Adults Add. Discharge Instructions: Percocet for pain. Follow the Dr. Ramírez on Friday. Return if any problems or questions. All discharge instructions reviewed with patient and/or family. Voiced understanding. Scripts Oxycodone HCl/Acetaminophen (Percocet 5-325 mg Tablet) 1 Each Tablet 1 TAB PO Q4H for PAIN-MODERATE MDD 6 TABS for 7 Days, #20 TAB Prov: CASEY RUANO MD 04/17/19 CASEY RUANO MD Apr 17, 2019 15:27
[2019-04-17] MEDS ORDERED: NS IV 1000 ML 1,000 ML IV SCH (15:30)
[2019-04-17] MEDS ORDERED: fentaNYL INJECTION 100 MCG/2 ML AMP IVP ONE (15:30)
[2019-04-17 15:46] LABS: BASOPHILS # (AUTO) 0.1 10^3/uL (0.0-0.1); BASOPHILS % (AUTO) 1 % (0-10); EOSINOPHILS # (AUTO) 0.3 10^3/uL (0.0-0.3); EOSINOPHILS % (AUTO) 4 % (0-10); HEMATOCRIT 39 % (35-52); HEMOGLOBIN 12.5 G/DL (11.5-16.0); LYMPHOCYTES # (AUTO) 2.1 X 10^3 (1.0-4.0); LYMPHOCYTES % (AUTO) 32 % (12-44); MEAN CORPUSCULAR HEMOGLOBIN 30 PG (25-34); MEAN CORPUSCULAR HGB CONC 32 G/DL (32-36); MEAN CORPUSCULAR VOLUME 94 FL (80-99); MEAN PLATELET VOLUME 9.9 FL (7.4-10.4); MONOCYTES # (AUTO) 0.8 X 10^3 (0.0-1.0); MONOCYTES % (AUTO) 12 % (0-12); NEUTROPHILS # (AUTO) 3.4 X 10^3 (1.8-7.8); NEUTROPHILS % (AUTO) 51 % (42-75); PLATELET COUNT 250 10^3/uL (130-400); RED CELL DISTRIBUTION WIDTH 13.9 % (10.0-14.5); WHITE BLOOD COUNT 6.7 10^3/uL (4.3-11.0)
[2019-04-17 16:03] LABS: ALBUMIN 3.7 GM/DL (3.2-4.5); BILIRUBIN,TOTAL 0.4 MG/DL (0.1-1.0); CALCIUM 8.6 MG/DL (8.5-10.1); CREATININE SERUM 0.95 MG/DL (0.60-1.30); TOTAL PROTEIN 6.6 GM/DL (6.4-8.2)
--- NOTE | 2019-04-17 16:05 | Diagnostic Imaging Report ---
EXAMINATION: CT Chest, Abdomen and Pelvis without intravenous contrast. TECHNIQUE: Multiple contiguous axial images were obtained through the chest, abdomen and pelvis without intravenous contrast. All CT scans use one or more of the following dose optimizing techniques: automated exposure control, MA and/or KvP adjustment based on a patient size and exam type, or iterative reconstruction. HISTORY: Rib pain. COMPARISON: 08/16/2014 FINDINGS: There is mild bibasilar atelectasis. Lungs are moderately emphysematous. No pleural effusion or pneumothorax. No suspicious nodules. Heart size is normal. No pericardial effusion. Aorta is normal in caliber. There is no axillary or supraclavicular lymphadenopathy. There is no mediastinal lymphadenopathy. There are severe coronary artery calcifications. The liver is normal without focal lesion. There is no biliary ductal dilation. Gallbladder is normal. Pancreas is normal. Spleen is normal. Adrenal glands are normal. There are bilateral nonobstructing renal stones measuring 1-2 mm. Simple cyst is present in the right kidney. No suspicious renal lesions. There is no hydronephrosis. Urinary bladder is normal. There are no dilated loops of large or small bowel. No obstruction or inflammation. No free fluid or air. No abdominal or pelvic lymphadenopathy. Aorta is normal in caliber without aneurysm. There is an age-indeterminate mild T12 compression fracture with approximately 30% height loss. No rib fracture is seen. IMPRESSION: 1. Mild age-indeterminate T12 compression fracture. 2. Otherwise, no acute abnormality in the chest, abdomen or pelvis. Dictated by: Dictated on workstation # [id number]
[2019-04-17 16:13] LABS: BILIRUBIN,URINE NEGATIVE (NEGATIVE); CLARITY,URINE CLEAR; COLOR,URINE YELLOW; GLUCOSE, URINE (UA) NEGATIVE (NEGATIVE); KETONES,URINE NEGATIVE (NEGATIVE); LEUKOCYTE ESTERASE ,URINE 2+ (NEGATIVE); NITRITE,URINE NEGATIVE (NEGATIVE); PROTEIN,URINE NEGATIVE (NEGATIVE)
[2019-04-17 16:24] LABS: BACTERIA,URINE TRACE /HPF
[2019-04-17] MEDS ORDERED: OXYC1TAB87 PO (16:26)
[2019-04-17 16:48] VITALS: BP 148/88
== END 2019-04-17 16:48 | disposition home or self-care (01) ==
LOC: EDUNIT# 14:53 → ER 14:54
DX: S22.31XA Fracture of one rib, right side, initial encounter for closed fracture (principal); I10 Essential (primary) hypertension; F03.90 Unspecified dementia, unspecified severity, without behavioral disturbance, psychotic disturbance, mood disturbance, and anxiety; Z88.5 Allergy status to narcotic agent; Z88.8 Allergy status to other drugs, medicaments and biological substances; Z87.891 Personal history of nicotine dependence; Z77.22 Contact with and (suspected) exposure to environmental tobacco smoke (acute) (chronic); Z90.49 Acquired absence of other specified parts of digestive tract; W18.39XA Other fall on same level, initial encounter
CPT/HCPCS: 36415; 71250; 74176; 80053; 81000; 85025; 87088; 96374

== ENCOUNTER 2019-06-19 19:50 | Emergency (ER) | payer MEDICARE, OTHER ==
[~2019-06-19] VITALS: Ht 152.6 cm; Wt 50.8 kg
[~2019-06-19 19:50] MED LIST changes: -ENAL5TAB PO; +ENLP5T PO; +OXYC1TAB87 PO; -TRAM50TA2 PO; +TRM50T PO
[2019-06-19 20:52] LABS: BASOPHILS # (AUTO) 0.1 10^3/uL (0.0-0.1); BASOPHILS % (AUTO) 1 % (0-10); EOSINOPHILS # (AUTO) 0.1 10^3/uL (0.0-0.3); EOSINOPHILS % (AUTO) 2 % (0-10); HEMATOCRIT 43 % (35-52); LYMPHOCYTES # (AUTO) 2.3 X 10^3 (1.0-4.0); LYMPHOCYTES % (AUTO) 27 % (12-44); MEAN CORPUSCULAR HEMOGLOBIN 31 PG (25-34); MEAN CORPUSCULAR HGB CONC 33 G/DL (32-36); MEAN CORPUSCULAR VOLUME 95 FL (80-99); MEAN PLATELET VOLUME 10.3 FL (7.4-10.4); MONOCYTES # (AUTO) 0.8 X 10^3 (0.0-1.0); MONOCYTES % (AUTO) 10 % (0-12); NEUTROPHILS % (AUTO) 61 % (42-75); PLATELET COUNT 246 10^3/uL (130-400); RED CELL DISTRIBUTION WIDTH 13.9 % (10.0-14.5); WHITE BLOOD COUNT 8.3 10^3/uL (4.3-11.0)
[2019-06-19 21:00] LABS: BILIRUBIN,URINE NEGATIVE (NEGATIVE); CLARITY,URINE CLOUDY; COLOR,URINE YELLOW; GLUCOSE, URINE (UA) NEGATIVE (NEGATIVE); KETONES,URINE NEGATIVE (NEGATIVE); LEUKOCYTE ESTERASE ,URINE 2+ (NEGATIVE); NITRITE,URINE NEGATIVE (NEGATIVE); PROTEIN,URINE NEGATIVE (NEGATIVE)
[2019-06-19] MEDS ORDERED: NS IV 500 ML 500 ML IV ONE (21:01)
[2019-06-19 21:08] LABS: ALANINE AMINOTRANSFERASE 6 U/L (0-55); ALBUMIN 4.2 GM/DL (3.2-4.5); ALKALINE PHOSPHATASE 121 U/L (40-136); BILIRUBIN,TOTAL 0.4 MG/DL (0.1-1.0); BUN/CREATININE RATIO 8; CALCIUM 9.5 MG/DL (8.5-10.1); CARBON DIOXIDE 25 MMOL/L (21-32); CHLORIDE 104 MMOL/L (98-107); CREATININE SERUM 0.86 MG/DL (0.60-1.30); GFR ESTIMATED > 60; GLUCOSE 104 MG/DL (70-105); POTASSIUM 3.7 MMOL/L (3.6-5.0); SODIUM 141 MMOL/L (135-145); TOTAL PROTEIN 7.5 GM/DL (6.4-8.2)
[2019-06-19 21:20] LABS: BACTERIA,URINE FEW /HPF; SQUAMOUS EPITHELIAL CELL,UR 25-50 /HPF; WBC,URINE 25-50 /HPF
--- NOTE | 2019-06-19 21:32 | ED GU-Female ---
General Chief Complaint: - Urinary Stated Complaint: VOMITING/LACK OF BALANCE/LACK OF STRENGTH Nursing Triage Note: SON STATES MOTHER HAS ALTZHIMERS AND HAS BEEN EXPERIENCING VOMITING X 2 TODAY, WAKNESS AND HAS NOTICED HER BALANCE IS OFF. SHE IS FROM HIS HOME. SHE IS ALERT TO PERSON ONLY SON AND DAUGHTER IN LAW ARE AT BEDSIDE. MONITORING MAINTAINED AND TWO RAILS UP WITH SUPERVISION. SON STATES PATIENT BECOMES VERY NERVOUS WHEN SHE HAS TO LEAVE THE HOUSE AND THAT FREQUENTLY HER BLOOD PRESSURE IS HIGH WHEN AT THE DR'S OFFICE, HOWEVER AT HOME HAS NO ISSUES. 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 She has a history of Alzheimer's. She's having some nausea vomiting without fever for the past day which typically heralds a UTI according to her son. She is unable to give any significant meaningful review of systems or history. She denies any pain or fevers. No cough shortness of breath. She is on lisinopril for blood pressure but often her blood pressure shoots up very high whenever she has to go out of the house because of anxiety. She is on sertraline. She is to follow-up with Dr. Pool and they are attempting to find a new primary care physician. No constipation or diarrhea. Allergies and Home Medications Allergies Coded Allergies: codeine (Unverified Allergy, Unknown, 01/25/15) belladonna alkaloids (Unverified Adverse Reaction, Mild, NAUSEA, 02/09/13) Home Medications Ca Carbonate/Vitamin D3/Vit K 1 Each Tab.chew, 1 EACH PO DAILY, (Reported) Cephalexin 500 Mg Capsule, 500 MG PO TID Prescribed by: BRANDIE GARDNER on 05/08/18 1005 Enalapril Maleate 5 Mg Tablet, 5 MG PO DAILY, (Reported) Oxycodone HCl/Acetaminophen 1 Each Tablet, 1 TAB PO Q4H Prescribed by: CASEY RUANO MD on 04/17/19 1626 Sertraline HCl 50 Mg Tablet, 50 MG PO DAILY, (Reported) Tramadol HCl 50 Mg Tablet, 50 MG PO TID Prescribed by: BRANDIE GARDNER on 05/08/18 1005 Patient Home Medication List Home Medication List Reviewed: Yes Review of Systems Review of Systems Constitutional: see HPI (review of systems per son and partially from patient); No chills, No diaphoresis EENTM: No ear discharge, No ear pain Respiratory: No cough, No short of breath Cardiovascular: No chest pain, No edema Gastrointestinal: No abdominal pain, No constipation, No diarrhea; nausea, vo miting Genitourinary: see HPI; denies burning, denies discharge, denies dysuria Musculoskeletal: No back pain, No joint pain Skin: No pruritus, No rash Psychiatric/Neurological: Denies Headache, Denies Numbness Past Funatnt-Bbmbbn-Cawesw Hx Patient Social History Alcohol Use: Denies Use Recreational Drug Use: No Former Smoker, Quit: Feb 05, 2000 2nd Hand Smoke Exposure: No Recent Foreign Travel: No Contact w/Someone Who Travel: No Recent Infectious Disease Expo: No Recent Hopitalizations: No Physical Abuse: No Sexual Abuse: No Mistreated: No Fear: No Immunizations Up To Date Date of Influenza Vaccine: Jan 26, 2014 Past Medical History Surgeries: Yes (oral sx) Abdominal, Appendectomy, Oophorectomy, Orthopedic Respiratory: No Cardiac: Yes Hypertension Neurological: Yes Dementia 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 0.0oz. 55.096270ml; 21.00 BMI Method:Stated General Appearance: WD/WN, no apparent distress HEENT: PERRL/EOMI, normal ENT inspection, pharynx normal Neck: full range of motion, supple, normal inspection Cardiovascular: normal peripheral pulses, regular rate, rhythm, no edema Respiratory: lungs clear, normal breath sounds, no respiratory distress, no accessory muscle use Gastrointestinal: normal bowel sounds, non tender, soft Extremities: non-tender, normal inspection, no pedal edema Neurologic/Psychiatric: alert, normal mood/affect, other (oriented to person only) Skin: normal color, warm/dry Progress/Results/Core Measures Suspected Sepsis Recent Fever Within 48 Hours: No Infection Criteria Present: None New/Unexplained Altered Menta: No Sepsis Screen: No Definite Risk SIRS Temperature: Pulse: 66 Respiratory Rate: 20 Laboratory Tests 06/19/19 20:35: White Blood Count 8.3 Blood Pressure 206 /83 Mean: 124 Laboratory Tests 06/19/19 20:35: Creatinine 0.86, Platelet Count 246, Total Bilirubin 0.4 Results/Orders Lab Results Laboratory Tests Test 06/19/19 20:35 06/19/19 20:46 Range/Units White Blood Count 8.3 4.3-11.0 10^3/uL Red Blood Count 4.52 4.35-5.85 10^6/uL Hemoglobin 14.0 11.5-16.0 G/DL Hematocrit 43 35-52 % Mean Corpuscular Volume 95 80-99 FL Mean Corpuscular Hemoglobin 31 25-34 PG Mean Corpuscular Hemoglobin Concent 33 32-36 G/DL Red Cell Distribution Width 13.9 10.0-14.5 % Platelet Count 246 130-400 10^3/uL Mean Platelet Volume 10.3 7.4-10.4 FL Neutrophils (%) (Auto) 61 42-75 % Lymphocytes (%) (Auto) 27 12-44 % Monocytes (%) (Auto) 10 0-12 % Eosinophils (%) (Auto) 2 0-10 % Basophils (%) (Auto) 1 0-10 % Neutrophils # (Auto) 5.0 1.8-7.8 X 10^3 Lymphocytes # (Auto) 2.3 1.0-4.0 X 10^3 Monocytes # (Auto) 0.8 0.0-1.0 X 10^3 Eosinophils # (Auto) 0.1 0.0-0.3 10^3/uL Basophils # (Auto) 0.1 0.0-0.1 10^3/uL Sodium Level 141 135-145 MMOL/L Potassium Level 3.7 3.6-5.0 MMOL/L Chloride Level 104 98-107 MMOL/L Carbon Dioxide Level 25 21-32 MMOL/L Anion Gap 12 5-14 MMOL/L Blood Urea Nitrogen 7 7-18 MG/DL Creatinine 0.86 0.60-1.30 MG/DL Estimat Glomerular Filtration Rate > 60 BUN/Creatinine Ratio 8 Glucose Level 104 70-105 MG/DL Calcium Level 9.5 8.5-10.1 MG/DL Corrected Calcium 9.3 8.5-10.1 MG/DL Total Bilirubin 0.4 0.1-1.0 MG/DL Aspartate Amino Transf (AST/SGOT) 17 5-34 U/L Alanine Aminotransferase (ALT/SGPT) 6 0-55 U/L Alkaline Phosphatase 121 40-136 U/L Total Protein 7.5 6.4-8.2 GM/DL Albumin 4.2 3.2-4.5 GM/DL Urine Color YELLOW Urine Clarity CLOUDY Urine pH 6.0 5-9 Urine Specific [place] 1.020 1.016-1.022 Urine Protein NEGATIVE NEGATIVE Urine Glucose (UA) NEGATIVE NEGATIVE Urine Ketones NEGATIVE NEGATIVE Urine Nitrite NEGATIVE NEGATIVE Urine Bilirubin NEGATIVE NEGATIVE Urine Urobilinogen 0.2 < = 1.0 MG/DL Urine Leukocyte Esterase 2+ H NEGATIVE Urine RBC (Auto) 2+ H NEGATIVE Urine RBC 10-25 H /HPF Urine WBC 25-50 H /HPF Urine Squamous Epithelial Cells 25-50 H /HPF Urine Crystals NONE /LPF Urine Bacteria FEW H /HPF Urine Casts NONE /LPF Urine Mucus LARGE H /LPF Urine Culture Indicated YES My Orders Orders - JOSE LUIS DIAS Ua Culture If Indicated (06/19/19 20:42) Straight Cath For Spec.-Adult (06/19/19 20:42) Cbc With Automated Diff (06/19/19 20:42) Comprehensive Metabolic Panel (06/19/19 20:42) Ed Iv/Invasive Line Start (06/19/19 21:01) Ns Iv 500 Ml (Sodium Chloride 0.9%) (06/19/19 21:01) Urine Culture (06/19/19 20:46) Medications Given in ED Current Medications Medications Dose Ordered Sig/Elina Route Start Time Stop Time Status Last Admin Dose Admin Sodium Chloride 500 ml @ 0 mls/hr Q0M ONCE IV 06/19/19 21:01 06/19/19 21:02 DC 06/19/19 21:14 500 MLS/HR Vital Signs/I&O 06/19/19 20:14 Temp 36.6 Pulse 66 Resp 20 B/P (MAP) 206/83 (124) Pulse Ox 96 O2 Delivery Room Air Capillary Refill : Less Than 3 Seconds Blood Pressure Mean: 124 Departure Impression Primary Impression: Urinary tract infection Qualified Codes: N30.01 - Acute cystitis with hematuria Additional Impression: Nausea and vomiting Qualified Codes: R11.2 - Nausea with vomiting, unspecified Disposition: HOME, SELF-CARE Condition: Stable Departure-Patient Inst. Decision time for Depature: 22:08 Referrals: MELISSA POOL MD (PCP/Family) Primary Care Physician Patient Instructions: LOCAL PHYSICIAN LIST, Urinary Tract Infection, Adult (DC) Add. Discharge Instructions: Drink plenty of fluids. Ondansetron one tablet under the tongue every 6 hours as needed for nausea or vomiting. Macrobid one tablet twice a day for the next 7 days for urinary tract infection. Return to the ER immediately if she expresses significant pain, intractable nausea or vomiting, fever especially above 102.5 or other worrisome symptoms. All discharge instructions reviewed with patient and/or family. Voiced understanding. Scripts Ondansetron (Ondansetron Odt) 4 Mg Tab.rapdis 4 MG PO Q6H PRN for NAUSEA/VOMITING-1ST LINE, #12 TAB 0 Refills Prov: JOSE LUIS IDAS 06/19/19 Nitrofurantoin Monohyd/M-Cryst (Macrobid 100 mg Capsule) 100 Mg Capsule 1 TAB PO BID for 7 Days, #14 CAP 0 Refills Prov: JOSE LUIS DIAS 06/19/19 JOSE LUIS DIAS Jun 19, 2019 21:32
[2019-06-19] MEDS ORDERED: ONDA4TAB11 PO (22:11)
[2019-06-19] MEDS ORDERED: NITR-65 PO (22:11)
[2019-06-19] MEDS ORDERED: ONDANSETRON 4 MG (ZOFRAN) ORAL DISSOLVE TAB ONE (22:12)
[2019-06-19] MEDS ORDERED: NITROFURANTOIN 100 MG (MACROBID) CAPSULE PO ONE (22:15)
[2019-06-19] MEDS ORDERED: ONDANSETRON 4 MG (ZOFRAN) ORAL DISSOLVE TAB PO ONE (22:15)
[2019-06-19 22:20] VITALS: BP 185/78
== END 2019-06-19 22:27 | disposition home or self-care (01) ==
LOC: EDUNIT# 19:50 → ER 19:52
DX: N39.0 Urinary tract infection, site not specified (principal); I10 Essential (primary) hypertension; Z88.5 Allergy status to narcotic agent; Z88.8 Allergy status to other drugs, medicaments and biological substances; Z87.891 Personal history of nicotine dependence
CPT/HCPCS: 36415; 51701; 80053; 81000; 85025; 87077; 87088; 87186

== ENCOUNTER 2020-09-02 22:46 | Emergency (ER) | payer MEDICARE, OTHER ==
[~2020-09-02] VITALS: Ht 152.6 cm; Wt 50.8 kg
[~2020-09-02 22:46] MED LIST changes: +NITR-65 PO; +ONDA4TAB11 PO; +SERT-413 PO; -SERT50TA9 PO
--- NOTE | 2020-09-03 00:01 | ED Upper Extremity ---
General Chief Complaint: Trauma-Non Activation Stated Complaint: FALL/LEFT SHOULDER INJURY Nursing Triage Note: tripped/fell from standing position. c/o left shoulder pain. denies loc. right elbow skin tear. blood nose. Nursing Sepsis Screen: No Definite Risk Source: caregiver (son ) Exam Limitations: other (dementia, CHEESH-NA) (AN VIERA APRN) History of Present Illness Date Seen by Provider: September 02, 2020 Time Seen by Provider: 23:45 Initial Comments This is a 89-year-old female presents to the ER with her son for complaints of same level fall and left arm pain. Son states that she lost her balance in the kitchen and fell face forward hitting her nose and left side on the linoleum floor. Had a bloody nose but was able to control bleeding. Currently complaining of left forearm and left upper arm pain at this time. No medications given prior to arrival, no loss of consciousness. She has limited language due to dementia and is unable to verbalize pain/symptoms. No use of anticoagulants or aspirin. Location Injury Occurred: home (AN VIERA APRN) Allergies and Home Medications Allergies Coded Allergies: codeine (Unverified Allergy, Unknown, 01/25/15) belladonna alkaloids (Unverified Adverse Reaction, Mild, NAUSEA, 02/09/13) Home Medications Ca Carbonate/Vitamin D3/Vit K 1 Each Tab.chew, 1 EACH PO DAILY, (Reported) Cephalexin 500 Mg Capsule, 500 MG PO TID Prescribed by: BRANDIE GARDNER on 05/08/18 1005 Enalapril Maleate 5 Mg Tablet, 5 MG PO DAILY, (Reported) Hydrocodone/Acetaminophen 1 Each Tablet, 1 TAB PO Q6H PRN for PAIN-MODERATE (5- 7) Prescribed by: JOSE LUIS DIAS on 09/03/20 0129 Nitrofurantoin Monohyd/M-Cryst 100 Mg Capsule, 1 TAB PO BID Prescribed by: JOSE LUIS DIAS on 06/19/192210 Ondansetron 4 Mg Tab.rapdis, 4 MG PO Q6H PRN for NAUSEA/VOMITING-1ST LINE Prescribed by: JOSE LUIS DIAS on 06/19/192210 Ondansetron 4 Mg Tab.rapdis, 4 MG PO Q6H PRN for NAUSEA/VOMITING Prescribed by: JOSE LUIS DAIS on 09/03/20 0128 Oxycodone HCl/Acetaminophen 1 Each Tablet, 1 TAB PO Q4H Prescribed by: CASEY RUANO MD on 04/17/19 1626 Sertraline HCl 50 Mg Tablet, 50 MG PO DAILY, (Reported) Tramadol HCl 50 Mg Tablet, 50 MG PO TID Prescribed by: BRANDIE GARDNER on 05/08/18 1005 Patient Home Medication List Home Medication List Reviewed: Yes (AN VIERA APRN) Review of Systems Constitutional: no symptoms reported EENTM: see HPI Respiratory: no symptoms reported Cardiovascular: no symptoms reported Gastrointestinal: no symptoms reported Genitourinary: no symptoms reported Musculoskeletal: see HPI Skin: see HPI Psychiatric/Neurological: See HPI (AN VIERA APRN) Past Rrswvdj-Zgftdp-Xuytrl Hx Patient Social History Alcohol Use: Denies Use Smoking Status: Former Smoker Former Smoker, Quit: Feb 05, 2000 2nd Hand Smoke Exposure: No Recent Infectious Disease Expo: No Recent Hopitalizations: No (AN VIERA APRN) Immunizations Up To Date Tetanus Booster (TDap): Unknown Date of Influenza Vaccine: Jan 26, 2014 (AN VIERA APRN) Seasonal Allergies Seasonal Allergies: No (AN VIERA APRN) Past Medical History Surgeries: Yes (oral sx) Abdominal, Appendectomy, Oophorectomy, Orthopedic Respiratory: No Cardiac: Yes Hypertension Neurological: Yes Dementia : 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 0.0oz. 55.096426ms; 21.00 BMI Method:Stated General Appearance: WD/WN, no apparent distress HEENT: PERRL/EOMI, normal ENT inspection (Dried blood bilateral nares.), TMs normal Neck: non-tender, supple, normal inspection Cardiovascular: normal peripheral pulses, regular rate, rhythm Respiratory: chest non-tender, lungs clear, normal breath sounds, no respiratory distress Gastrointestinal: normal bowel sounds, non tender, soft Shoulder: normal inspection, limited ROM, pain (Left) Elbow/Forearm: normal inspection, Left, abrasions (Right elbow), limited ROM, pain Wrist: Yes normal inspection, Yes limited ROM, Yes pain (Left) Neurologic/Tendon: normal sensation, normal motor functions, normal tendon functions, responds to pain Neurologic/Psychiatric: no motor/sensory deficits, alert, normal mood/affect; No oriented x 3 Skin: normal color, warm/dry (AN VIERA APRN) Progress/Results/Core Measures Results/Orders Vital Signs/I&O 09/02/20 22:58 Temp 36.6 Pulse 66 Resp 18 B/P (MAP) 160/74 (102) Pulse Ox 95 O2 Delivery Room Air (JOSE LUIS DIAS) Blood Pressure Mean: 102 Progress Progress Note : Progress Note Patient examined, difficult to ascertain extent of injuries due to limited language. However during exam and palpation of extremities she was noted to have marked tenderness in her left forearm and left upper arm. Will obtain x- rays. Additionally son states that she hit pretty hard but had no loss of consciousness. She is unable to tell me if she has head/neck pain. Will order CT head neck to evaluate for any injuries. (AN VIERA APRN) Progress Note : Time: 01:16 Progress Note Assumed care of the patient at 0100. Imaging reviewed. Shoulder immobilizer placed. Pain medicine and referral to orthopedics of her choice. (JOSE LUIS DIAS) Diagnostic Imaging Diagonstic Imaging: Xray Plain Films/CT/US/NM/MRI: forearm Comments No acute fracture noted Reviewed: Reviewed by Me Diagonstic Imaging: Xray Plain Films/CT/US/NM/MRI: other Comments Surgical neck fracture left proximal humerus. Nondisplaced, closed Reviewed: Reviewed by Me Diagonstic Imaging: CT Plain Films/CT/US/NM/MRI: c-spine, head Comments Right frontal scalp swelling. No skull fracture or intracranial hemorrhage. Cervical spondylosis. No evidence of cervical fracture. Reviewed: Reviewed [place] Study, Reviewed by Me (JOSE LUIS DIAS) Departure Impression Primary Impression: Fall on same level Qualified Codes: W18.30XA - Fall on same level, unspecified, initial encounter Additional Impression: Shoulder fracture, left Qualified Codes: S42.92XA - Fracture of left shoulder girdle, part unspecified, initial encounter for closed fracture Disposition: HOME, SELF-CARE Condition: Stable Departure-Patient Inst. Decision time for Depature: 01:15 (JOSE LUIS DIAS) Referrals: TETE YEH DO (PCP/Family) Primary Care Physician Patient Instructions: Shoulder Pain (DC) Add. Discharge Instructions: Follow-up with orthopedic surgeon of your choice. Locally there is Dr. Gonzáles, Dr. Young and all of the fine orthopedic surgeons at [facility]. Hydrocodone 1 tablet every 6 hours as necessary for severe pain. Tylenol 650 mg every 8 hours as necessary for pain. Topical creams such as icy hot or Biofreeze. Shoulder immobilizer to be worn except for bathing to reduce pain. Ice 20 minutes on every 2 hours for the first 2 to 3 days to reduce swelling and pain. All discharge instructions reviewed with patient and/or family. Voiced understanding. Scripts Ondansetron (Ondansetron Odt) 4 Mg Tab.rapdis 4 MG PO Q6H PRN for NAUSEA/VOMITING, #8 TAB 0 Refills Prov: JOSE LUIS DIAS 09/03/20 Hydrocodone/Acetaminophen (Hydrocodone-Acetamin 5-325 mg) 1 Each Tablet 1 TAB PO Q6H PRN for PAIN-MODERATE (5-7), #20 TAB 0 Refills Prov: JOSE LUIS DIAS 09/03/20 Copy Copies To 1: TETE YEH STORMY D APRN September 03, 2020 00:01 JOSE LUIS DIAS September 03, 2020 01:21
[2020-09-03] MEDS ORDERED: ONDA4TAB11 PO (01:28)
[2020-09-03] MEDS ORDERED: ACHD5005 PO (01:28)
[2020-09-03 01:34] VITALS: BP 157/98
--- NOTE | 2020-09-03 07:01 | Diagnostic Imaging Report ---
Clinical indications: Patient status post trip and fall from standing position. Patient complains of left shoulder pain. Patient has blood nose Exam: Axial Head CT without IV contrast with sagittal and coronal reformations. Axial CT scan of the cervical spine with sagittal and coronal reformations. Auto Exposure Controls were utilized during the CT exam to meet ALARA standards for radiation dose reduction. Comparison: Head CT without contrast dated 02/16/2018. Findings: Head CT: There is progression of diffuse brain parenchymal volume loss. There are patchy and confluent areas of low-attenuation white matter changes involving both cerebral hemispheres and periventricular regions, likely representing chronic small vessel ischemic disease and leukoaraiosis. There is no evidence of intracranial hemorrhage, brain herniation of midline shift. There is no CT evidence of acute cerebral infarct. Basal cisterns are unremarkable. Extracranial soft tissue, skull, and orbits are unremarkable. There is minimal mucosal thickening involving ethmoid sinus. Mastoid air cells are clear. Cervical spine: There is patient body habitus and streak artifact which obscures portions of the lower cervical and visualized upper thoracic spine. There is no acute cervical spine fracture or dislocation. There is reversal of the cervical lordosis involving the upper cervical region. There are hypertrophic spurs and facet arthropathy involving the cervical spine. There is moderate to severe loss of disk space height seen from the C3-C7 levels. There is at least moderate to severe bilateral C3-C4 neural foramen narrowing, moderate to severe left C4-C5 neural foramen narrowing and moderate to severe right C5-C6 neural foramen narrowing. There is moderate left C6-C7 neural foramen narrowing. There is no significant neck soft tissue abnormality. Emphysematous lung changes are seen. Impression: 1: There is no evidence of acute intracranial process. There is no skull fracture. 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 I agree with [employer] report. Dictated by: Dictated on workstation # [id number]
--- NOTE | 2020-09-03 08:09 | Diagnostic Imaging Report ---
CLINICAL INDICATION: Patient status post fall with left arm pain. Patient has pain down entire arm. EXAMS: 1.: X-ray of the left humerus, 2 views. 2: X-ray of the left forearm, 2 views. COMPARISON: None. FINDINGS: There is a comminuted minimally impacted fracture of the proximal humeral neck with mild ventral apex angulation. The glenohumeral joint is intact. There are degenerative spurs involving the left acromioclavicular region. There are spurs involving the left humeral head/neck junction region and glenoid. The remainder of the left humerus, elbow region, and forearm shows no acute fracture or dislocation. There is no elbow effusion. Visualized portion of the carpal bones show no acute fracture. IMPRESSION: 1: There is a comminuted mildly impacted fracture to proximal humeral neck with mild ventral apex angulation. 2: Left forearm shows no acute fracture. Dictated by: Dictated on workstation # [id number]
== END 2020-09-03 01:49 | disposition home or self-care (01) ==
LOC: EDUNIT# 22:46 → ER 22:48
DX: S42.92XA Fracture of left shoulder girdle, part unspecified, initial encounter for closed fracture (principal); I10 Essential (primary) hypertension; Z88.5 Allergy status to narcotic agent; Z88.8 Allergy status to other drugs, medicaments and biological substances; Z87.891 Personal history of nicotine dependence; Z79.899 Other long term (current) drug therapy; W18.30XA Fall on same level, unspecified, initial encounter
CPT/HCPCS: 70450; 72125; 73060; 73090; 99283; L3650

== ENCOUNTER 2021-02-19 14:27 | Emergency (ER) | payer MEDICARE, OTHER ==
[~2021-02-19] VITALS: Ht 154.9 cm; Wt 56.8 kg
[2021-02-19] MEDS ORDERED: NS IV 1000 ML 1,000 ML IV SCH (15:15)
--- NOTE | 2021-02-19 15:21 | ED General ---
General Chief Complaint: General Problems/Pain Stated Complaint: POSS UTI,FALL LEG PAIN Nursing Triage Note: TO ED PER W/C ACCOMPIED BY SO WHO REPORTS PATIENT HAS DEMENTIA AND FEEL X1 YESTERDAY AND TODAY. WILL NOT USE WALKER. PATIENT WILL NOT GIVE ANY INFO. Source of Information: Patient Exam Limitations: No Limitations History of Present Illness Date Seen by Provider: Feb 19, 2021 Time Seen by Provider: 14:58 Initial Comments Patient to ER by private conveyance with her son who she lives with with chief complaint that she has been having a fall yesterday and today. She not strike her head or loss consciousness. She is not on blood thinners. She is not using her walker and acting goofy. He says when she gets like this is usually a UTI. She had a little nonproductive cough. Everybody in the household been va ccinated for Covid and she does not go out. She has not been vaccinated for Covid. She has not had an influenza vaccine this year. She has had no fever. She is noncontributory to her history. She has advanced dementia. Allergies and Home Medications Allergies Coded Allergies: codeine (Unverified Allergy, Unknown, 01/25/15) belladonna alkaloids (Unverified Adverse Reaction, Mild, NAUSEA, 02/09/13) Patient Home Medication List Home Medication List Reviewed: Yes Ca Carbonate/Vitamin D3/Vit K (Citracal Soft Chew) 1 Each Tab.chew, 1 EACH PO DAILY, (Reported) Entered as Reported by: ROQUE OHARA on 01/25/15 1032 Cephalexin (Keflex) 500 Mg Capsule, 500 MG PO TID Prescribed by: BRANDIE GARDNER on 05/08/18 1005 Enalapril Maleate (Enalapril Maleate) 5 Mg Tablet, 5 MG PO DAILY, (Reported) Entered as Reported by: YUSUF DIAS on 05/04/18 1423 Hydrocodone/Acetaminophen (Hydrocodone-Acetamin 5-325 mg) 1 Each Tablet, 1 TAB PO Q6H PRN for PAIN-MODERATE (5-7) Prescribed by: JOSE LUIS DIAS on 09/03/20 0129 Nitrofurantoin Monohyd/M-Cryst (Macrobid 100 mg Capsule) 100 Mg Capsule, 1 TAB PO BID Prescribed by: JOSE LUIS DIAS on 06/19/192210 Ondansetron (Ondansetron Odt) 4 Mg Tab.rapdis, 4 MG PO Q6H PRN for NAUSEA/VOMITING-1ST LINE Prescribed by: JOSE LUIS DIAS on 06/19/192210 Ondansetron (Ondansetron Odt) 4 Mg Tab.rapdis, 4 MG PO Q6H PRN for NAUSEA/VOMITING Prescribed by: JOSE LUIS DIAS on 09/03/20 0128 Oxycodone HCl/Acetaminophen (Percocet 5-325 mg Tablet) 1 Each Tablet, 1 TAB PO Q4H Prescribed by: CASEY RUANO MD on 04/17/19 1626 Sertraline HCl (Sertraline HCl) 50 Mg Tablet, 50 MG PO DAILY, (Reported) Entered as Reported by: YUSUF DIAS on 05/04/18 1423 Tramadol HCl (Tramadol HCl) 50 Mg Tablet, 50 MG PO TID Prescribed by: BRANDIE GARDNER on 05/08/18 1005 Review of Systems Review of Systems Constitutional: see HPI (Review of systems Per son); No chills, No diaphoresis EENTM: No ear discharge, No ear pain Respiratory: cough; No phlegm, No short of breath, No wheezing Cardiovascular: No chest pain, No Hx of Intervention, No palpitations Gastrointestinal: No abdominal pain, No constipation; diarrhea; No nausea Genitourinary: No discharge, No frequency; incontinence Musculoskeletal: No back pain, No joint pain Skin: No pruritus, No rash Psychiatric/Neurological: Denies Headache, Denies Numbness All Other Systems Reviewed Negative Unless Noted: Yes Past Hfozsjf-Ehelrt-Sysygn Hx Patient Social History Tobacco Use?: No Substance use?: No Pt feels they are or have been: No Immunizations Up To Date Tetanus Booster (TDap): Unknown Seasonal Allergies Seasonal Allergies: No Past Medical History Surgeries: Yes (oral sx) Abdominal, Appendectomy, Oophorectomy, Orthopedic Respiratory: No Cardiac: Yes Hypertension 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 0.0oz. 55.954967lw; 23.00 BMI Method:Stated General Appearance: No Apparent Distress, Chronically ill Eyes: Bilateral Eye Normal Inspection, Bilateral Eye PERRL, Bilateral Eye EOMI HEENT: PERRL/EOMI, TMs Normal; No Moist Mucous Membranes (Dry oral mucosa) Neck: Full Range of Motion, Normal Inspection, Non Tender Respiratory: Lungs Clear, Normal Breath Sounds, No Accessory Muscle Use, No Respiratory Distress Cardiovascular: Regular Rate, Rhythm, Normal Peripheral Pulses Gastrointestinal: Normal Bowel Sounds, No Organomegaly, Non Tender, Soft Extremity: Normal Capillary Refill, Normal Inspection, No Pedal Edema Neurologic/Psychiatric: Alert, Other (Oriented to self which is baseline. No lateralizing defects. Smiles, giggles.) Skin: Normal Color, Warm/Dry Progress/Results/Core Measures Suspected Sepsis SIRS Temperature: Pulse: 72 Respiratory Rate: 18 Laboratory Tests 02/19/21 15:43: White Blood Count 5.4 Blood Pressure 189 /88 Mean: 121 Laboratory Tests 02/19/21 15:43: Creatinine 0.91, Platelet Count 242, Total Bilirubin 0.4 Results/Orders Lab Results Laboratory Tests Test 02/19/21 15:10 02/19/21 15:43 02/19/21 16:04 Range/Units Influenza Type A (RT-PCR) Not Detected Not Detecte Influenza Type B (RT-PCR) Not Detected Not Detecte SARS-CoV-2 RNA (RT-PCR) Not Detected Not Detecte White Blood Count 5.4 4.3-11.0 10^3/uL Red Blood Count 3.65 L 3.80-5.11 10^6/uL Hemoglobin 12.1 11.5-16.0 g/dL Hematocrit 37 35-52 % Mean Corpuscular Volume 101 H 80-99 fL Mean Corpuscular Hemoglobin 33 25-34 pg Mean Corpuscular Hemoglobin Concent 33 32-36 g/dL Red Cell Distribution Width 14.5 10.0-14.5 % Platelet Count 242 130-400 10^3/uL Mean Platelet Volume 10.1 9.0-12.2 fL Immature Granulocyte % (Auto) 0 % Neutrophils (%) (Auto) 47 42-75 % Lymphocytes (%) (Auto) 38 12-44 % Monocytes (%) (Auto) 13 H 0-12 % Eosinophils (%) (Auto) 1 0-10 % Basophils (%) (Auto) 1 0-10 % Neutrophils # (Auto) 2.5 1.8-7.8 10^3/uL Lymphocytes # (Auto) 2.0 1.0-4.0 10^3/uL Monocytes # (Auto) 0.7 0.0-1.0 10^3/uL Eosinophils # (Auto) 0.1 0.0-0.3 10^3/uL Basophils # (Auto) 0.0 0.0-0.1 10^3/uL Immature Granulocyte # (Auto) 0.0 0.0-0.1 10^3/uL Sodium Level 136 135-145 MMOL/L Potassium Level 4.4 3.6-5.0 MMOL/L Chloride Level 101 98-107 MMOL/L Carbon Dioxide Level 24 21-32 MMOL/L Anion Gap 11 5-14 MMOL/L Blood Urea Nitrogen 5 L 7-18 MG/DL Creatinine 0.91 0.60-1.30 MG/DL Estimat Glomerular Filtration Rate 58 BUN/Creatinine Ratio 5 Glucose Level 84 70-105 MG/DL Calcium Level 8.8 8.5-10.1 MG/DL Corrected Calcium 9.2 8.5-10.1 MG/DL Total Bilirubin 0.4 0.1-1.0 MG/DL Aspartate Amino Transf (AST/SGOT) 40 H 5-34 U/L Alanine Aminotransferase (ALT/SGPT) 13 0-55 U/L Alkaline Phosphatase 80 40-136 U/L C-Reactive Protein High Sensitivity 1.39 H 0.00-0.50 MG/DL Total Protein 6.7 6.4-8.2 GM/DL Albumin 3.5 3.2-4.5 GM/DL Urine Color YELLOW Urine Clarity CLEAR Urine pH 6.0 5-9 Urine Specific [place] 1.010 L 1.016-1.022 Urine Protein NEGATIVE NEGATIVE Urine Glucose (UA) NEGATIVE NEGATIVE Urine Ketones NEGATIVE NEGATIVE Urine Nitrite NEGATIVE NEGATIVE Urine Bilirubin NEGATIVE NEGATIVE Urine Urobilinogen 0.2 < = 1.0 MG/DL Urine Leukocyte Esterase NEGATIVE NEGATIVE Urine RBC (Auto) 1+ H NEGATIVE Urine RBC NONE /HPF Urine WBC NONE /HPF Urine Squamous Epithelial Cells RARE /HPF Urine Crystals NONE /LPF Urine Bacteria NEGATIVE /HPF Urine Casts NONE /LPF Urine Mucus NEGATIVE /LPF Urine Culture Indicated NO My Orders Orders - JOSE LUIS DIAS Straight Cath For Spec.-Adult (02/19/21 15:14) Ua Culture If Indicated (02/19/21 15:14) Cbc With Automated Diff (02/19/21 15:14) Comprehensive Metabolic Panel (02/19/21 15:14) Hs C Reactive Protein (02/19/21 15:14) Ed Iv/Invasive Line Start (02/19/21 15:14) Ns Iv 1000 Ml (Sodium Chloride 0.9%) (02/19/21 15:15) Chest 1 View, Ap/Pa Only (02/19/21 15:14) Covid 19 Inhouse Test (02/19/21 15:14) Influenza A And B By Pcr (02/19/21 15:14) Vital Signs/I&O 02/19/21 14:52 Pulse 72 Resp 18 B/P (MAP) 189/88 (121) Pulse Ox 96 O2 Delivery Room Air Capillary Refill : Less Than 3 Seconds Blood Pressure Mean: 121 Progress Note #1: Time: 15:20 Progress Note Labs to include urinalysis by straight catheter, influenza, COVID-19, CBC, CMP, CRP and a chest x-ray. Liter of fluids as she does appear to be clinically dry. Aseptic vital signs. Progress Note #2: Time: 17:31 Progress Note The patient had no material deterioration during her ER stay. She may have a little bit of a pneumonia starting versus atelectasis on the right base. She does have a cough with some rattles and low bit of clear sputum endorsed by her son. It is reasonable to treat her with a week of cefdinir and azithromycin outpatient and have her follow-up with Dr. Covarrubias outpatient in a week or 2. Return precautions were given. We recommend probiotics as well. Diagnostic Imaging Diagonstic Imaging: Xray Plain Films/CT/US/NM/MRI: chest Comments [facility] [place], [place] NAME: PATRICK VERA MED REC#: [id number] PT STATUS: REG ER : 1930 PHYSICIAN: JOSE LUIS DIAS MD ADMIT DATE: 02/19/21/ER Signed Date of Exam:02/19/21 CHEST 1 VIEW, AP/PA ONLY HISTORY: Shortness of air, cough, malaise. COMPARISON: 02/16/2018. TECHNIQUE: Frontal view of the chest. FINDINGS: Interstitial markings are mildly prominent but appear similar to 2018 and likely from chronic fibrotic change. There is mild airspace opacity in the right lung base. There is no pleural effusion or pneumothorax. The cardiac silhouette is stable in size. Calcified granulomas are seen bilaterally. There is aortic atherosclerosis. IMPRESSION: 1. Right basilar airspace opacity, may represent atelectasis or infiltrate. Dictated by: Dictated on workstation # [id number] Dict: 02/19/21 1646 Trans: 02/19/21 1654 [id number] Interpreted by: KACY ZUNIGA MD Electronically signed by: KACY ZUNIGA MD 02/19/21 1654 Reviewed: Reviewed by Me Departure Impression Primary Impression: Pneumonia Qualified Codes: J18.9 - Pneumonia, unspecified organism Additional Impression: Falls Qualified Codes: W19.XXXA - Unspecified fall, initial encounter Disposition: 01 HOME, SELF-CARE Condition: Stable Departure-Patient Inst. Decision time for Depature: 17:32 Referrals: TETE COVARRUBIAS DO (PCP/Family) Primary Care Physician Patient Instructions: Pneumonia, Adult (DC), Preventing Falls ED Add. Discharge Instructions: Encourage lots of fluids to drink. Humidifiers and vapor rubs. Cefdinir 1 capsule twice a day for the next week. Azithromycin take as directed. Follow-up in 1 to 2 weeks with primary care provider for recheck. Return to the ER promptly for significantly worsening shortness of air or other concerns All discharge instructions reviewed with patient and/or family. Voiced understanding. Scripts Lactobacillus Combination No.4 (Probiotic) 1 Each Capsule 1 EACH PO BID for 7 Days, #1 CAP 0 Refills Prov: JOSE LUIS DIAS 02/19/21 Azithromycin (Azithromycin) 250 Mg Tablet 250 MG PO UD, #6 TAB 0 Refills TAKE 2 TABLETS ON DAY ONE THEN TAKE 1 TABLET DAILY FOR FOUR MORE DAYS Prov: JOSE LUIS DIAS 02/19/21 Cefdinir (Cefdinir) 300 Mg Capsule 300 MG PO BID for 7 Days, #14 CAP 0 Refills Prov: JOSE LUIS DIAS 02/19/21 Copy Copies To 1: TETE COVARRUBIAS TITUS J Feb 19, 2021 15:20
[2021-02-19 15:49] LABS: BASOPHILS % (AUTO) 1 % (0-10); EOSINOPHILS # (AUTO) 0.1 10^3/uL (0.0-0.3); EOSINOPHILS % (AUTO) 1 % (0-10); HEMATOCRIT 37 % (35-52); HEMOGLOBIN 12.1 g/dL (11.5-16.0); LYMPHOCYTES % (AUTO) 38 % (12-44); MEAN CORPUSCULAR HEMOGLOBIN 33 pg (25-34); MEAN CORPUSCULAR HGB CONC 33 g/dL (32-36); MEAN CORPUSCULAR VOLUME 101 fL (80-99); MEAN PLATELET VOLUME 10.1 fL (9.0-12.2); MONOCYTES # (AUTO) 0.7 10^3/uL (0.0-1.0); MONOCYTES % (AUTO) 13 % (0-12); NEUTROPHILS # (AUTO) 2.5 10^3/uL (1.8-7.8); NEUTROPHILS % (AUTO) 47 % (42-75); PLATELET COUNT 242 10^3/uL (130-400); WHITE BLOOD COUNT 5.4 10^3/uL (4.3-11.0)
[2021-02-19 16:03] LABS: ALBUMIN 3.5 GM/DL (3.2-4.5); POTASSIUM 4.4 MMOL/L (3.6-5.0)
[2021-02-19 16:04] LABS: CALCIUM 8.8 MG/DL (8.5-10.1)
[2021-02-19 16:06] LABS: TOTAL PROTEIN 6.7 GM/DL (6.4-8.2)
[2021-02-19 16:08] LABS: BILIRUBIN,TOTAL 0.4 MG/DL (0.1-1.0)
[2021-02-19 16:10] LABS: CREATININE SERUM 0.91 MG/DL (0.60-1.30)
[2021-02-19 16:16] LABS: BILIRUBIN,URINE NEGATIVE (NEGATIVE); CLARITY,URINE CLEAR; COLOR,URINE YELLOW; GLUCOSE, URINE (UA) NEGATIVE (NEGATIVE); KETONES,URINE NEGATIVE (NEGATIVE); LEUKOCYTE ESTERASE ,URINE NEGATIVE (NEGATIVE); NITRITE,URINE NEGATIVE (NEGATIVE); PROTEIN,URINE NEGATIVE (NEGATIVE)
[2021-02-19 16:23] LABS: BACTERIA,URINE NEGATIVE /HPF; SQUAMOUS EPITHELIAL CELL,UR RARE /HPF
--- NOTE | 2021-02-19 16:50 | Diagnostic Imaging Report ---
HISTORY: Shortness of air, cough, malaise. COMPARISON: 02/16/2018. TECHNIQUE: Frontal view of the chest. FINDINGS: Interstitial markings are mildly prominent but appear similar to 2018 and likely from chronic fibrotic change. There is mild airspace opacity in the right lung base. There is no pleural effusion or pneumothorax. The cardiac silhouette is stable in size. Calcified granulomas are seen bilaterally. There is aortic atherosclerosis. IMPRESSION: 1. Right basilar airspace opacity, may represent atelectasis or infiltrate. Dictated by: Dictated on workstation # [id number]
[2021-02-19] MEDS ORDERED: LACT1CAP74 PO (17:35)
[2021-02-19] MEDS ORDERED: AZIT250T12 PO (17:35)
[2021-02-19] MEDS ORDERED: CEFD300C3 PO (17:35)
[2021-02-19 17:54] VITALS: BP 159/97
== END 2021-02-19 17:53 | disposition home or self-care (01) ==
LOC: EDUNIT# 14:27 → ER 14:30
DX: J18.9 Pneumonia, unspecified organism (principal); I10 Essential (primary) hypertension; F03.90 Unspecified dementia, unspecified severity, without behavioral disturbance, psychotic disturbance, mood disturbance, and anxiety; Z20.822 Contact with and (suspected) exposure to COVID-19
CPT/HCPCS: 36415; 51701; 71045; 80053; 81000; 85025; 86141; 87636; 96360